=== PATIENT | male | born 1970 | race Caucasian/White ===

== ENCOUNTER 2020-10-16 17:59 | Outpatient (REF) | payer MEDICAID, SELFPAY | END 2020-10-16 18:00 | disposition home or self-care (01) | LOC: HO.LAB 17:59 | PROVIDERS: Visit Provider Internal Medicine | DX: Z20.828 Contact with and (suspected) exposure to other viral communicable diseases (principal) | CPT/HCPCS: C9803; U0003 ==

== ENCOUNTER → 2021-09-04 09:54 | Outpatient (BNVA) | payer OTHER, SELFPAY | PROVIDERS: PCP Internal Medicine Endocrinology, Diabetes & Metabolism; Visit Provider Physician Assistant | DX: S61.412A Laceration without foreign body of left hand, initial encounter (principal); W26.8XXA Contact with other sharp object(s), not elsewhere classified, initial encounter | CPT/HCPCS: 73120; 99204 ==

== ENCOUNTER → 2021-09-06 11:43 | Outpatient (BNVA) | payer OTHER, SELFPAY | PROVIDERS: PCP Internal Medicine Endocrinology, Diabetes & Metabolism; Visit Provider Physician Assistant | DX: S61.412A Laceration without foreign body of left hand, initial encounter (principal); X58.XXXA Exposure to other specified factors, initial encounter | CPT/HCPCS: 99213 ==

== ENCOUNTER → 2021-09-12 12:07 | Outpatient (BNVA) | payer MEDICAID, SELFPAY | PROVIDERS: PCP Internal Medicine Endocrinology, Diabetes & Metabolism; Visit Provider Physician Assistant | DX: S61.412A Laceration without foreign body of left hand, initial encounter (principal); L03.114 Cellulitis of left upper limb; W26.9XXA Contact with unspecified sharp object(s), initial encounter; Z48.02 Encounter for removal of sutures | CPT/HCPCS: 99212; 99213 ==

== ENCOUNTER → 2021-10-17 09:04 | Outpatient (BNVA) | payer MEDICAID, SELFPAY | PROVIDERS: PCP Internal Medicine Endocrinology, Diabetes & Metabolism; Visit Provider Physician Assistant Medical | DX: S33.9XXA Sprain of unspecified parts of lumbar spine and pelvis, initial encounter (principal); X50.3XXA Overexertion from repetitive movements, initial encounter | CPT/HCPCS: 99203 ==

== ENCOUNTER 2022-09-16 07:19 | Emergency (ER) | payer OTHER, SELFPAY ==
--- NOTE | ~2022-09-16 | CT_ITS ---
EXAMINATION: CT ABDOMEN AND PELVIS WITHOUT CONTRAST CLINICAL INFORMATION: Abdominal pain. COMPARISON: None TECHNIQUE: Multidetector volumetric imaging was performed from the superior aspect of the liver through the pubic symphysis. Sagittal and coronal reformatted images were obtained on the technologist's workstation. Lack of intravenous and oral contrast limits visceral evaluation. This CT examination was performed using dose optimization techniques as appropriate, variously including the following: *Automated exposure control *Adjustment of mA and/or kV according to patient size (this includes techniques or standardized protocols for targeted exams where dose is matched to indication/reason for exam; i.e. extremities or head) *Use of iterative reconstruction technique DLP: 575 mGy-cm FINDINGS: LUNG BASES: The visualized lung bases are unremarkable. LIVER, GALLBLADDER, AND BILIARY TREE: Generalized hepatic enlargement with surface nodularity, but no focal abnormality. Mild upper abdominal varices. Gallbladder fold without associated abnormality. PANCREAS: Several punctate calcifications without pancreatic ductal dilatation or peripancreatic abnormality. SPLEEN: 14.4 cm. No overt focal abnormality. ADRENAL GLANDS: Unremarkable. KIDNEYS AND URETERS: The right kidney shows a 0.3 cm calculus in the upper pole (image 68, series 5). No hydronephrosis bilaterally. BLADDER: Unremarkable. GASTROINTESTINAL TRACT: The stomach, small bowel and appendix are unremarkable. The colon and rectum are unremarkable. ABDOMINAL WALL: No significant hernia is appreciated. LYMPH NODES: No lymphadenopathy. VASCULAR: Mild atherosclerosis without significant dilatation. PELVIC VISCERA: Unremarkable. OSSEOUS STRUCTURES: Unremarkable. CT/CT abdomen pelvis wo IV con IMPRESSION: 1. No acute intra-abdominal/pelvic abnormality. 2. Hepatic cirrhosis enlargement with associated sequelae. 3. Nonobstructing right upper pole intrarenal calculus. Fleischner guidelines were followed.
[2022-09-16 07:27] VITALS: BP 146/90; PULSE 68; RESP 18; TEMP 36.2; O2SAT 97; BMI 24.3
[2022-09-16] MEDS: 0.9 % Sodium Chloride 1,000 ML 999 ML IV (08:02)
[2022-09-16 08:09] LABS: MANUAL DIFF FLAG NO
[2022-09-16 08:11] LABS: Basophils Percent Auto 0.5 % (0-2); Eosinophils Absolute Auto 0.1 X10*3/uL (0.0-0.4); Eosinophils Percent Auto 1.4 % (0-4); Hematocrit 48.1 % (42.0-52.0); Hemoglobin 16.4 g/dl (14.0-18.0); Imm Gran Abs Auto 0.02 X10*3/uL (0.00-0.03); Imm Gran Pct Auto 0.3 % (0.0-0.4); Lymphocytes Percent Auto 27.3 % (20-40); Mean Corpuscular HGB Conc 34.1 g/dl (31.0-36.0); Mean Corpuscular Hemoglobin 31.3 pg (27.0-33.0); Mean Corpuscular Volume 91.8 fL (80.0-98.0); Mean Platelet Volume 11.2 fL (9.4-12.4); Monocytes Absolute Auto 0.9 X10*3/uL (0.1-1.2); Monocytes Percent Auto 11.6 % (2-11); Neutrophils Absolute Auto 4.3 x10*3/uL (2.0-8.3); Neutrophils Percent Auto 58.9 % (45-73); Platelet Count 129 X10*3/uL (160-400); Red Blood Count 5.24 X10*6/uL (4.60-5.80); Red Cell Distribution Width 14.5 % (11.0-16.0); White Blood Count 7.3 X10*3/uL (4.8-10.8)
[2022-09-16 08:12] LABS: Appearance Urine Clear; Color Urine Dark Yellow; Glucose Urine UA Negative (Negative); Leukocyte Esterase Urine Negative (Negative); Nitrite Urine Negative (Negative); PH 5.5 (5.0-9.0); Urine Blood Negative (Negative); Urine Ketones Negative (Negative); Urine Protein Negative (Neg-Trace)
--- NOTE | 2022-09-16 08:22 | ED_ITS ---
HPI - Abdominal Pain General Chief Complaint: Abdominal Pain Stated Complaint: Abd pain Time Seen by Provider: 09/16/22 07:46 Source: patient Mode of arrival: ambulatory Limitations: no limitations History of Present Illness HPI narrative: 52-year-old male came in for evaluation of abdominal pain. Abdominal pain started few months ago but for the past 2 days pain is becoming intense and severe, localized to the upper abdomen with no radiation, pain is rated as 7/10 and been constant, associated with slight nausea and nonbloody watery diarrhea but no vomiting, no fever, no chills. No past abdominal surgery. No alcohol or drug abuse patient is recovering from previous drug abuse history. Related Data Allergies Allergy/AdvReac Type Severity Reaction Status Date / Time Penicillins [PENICILLINS] Allergy Unknown ANAPHYLAXIS Verified 09/16/22 07:26 Review of Systems Review of Systems All other systems are reviewed and are negative Constitutional: Reports as per HPI and Reports no additional constitutional complaints Eyes: Reports as per HPI and Reports no additional eye complaints Reports system reviewed and no additional complaints, except as documented Cardiovascular: Reports as per HPI and Reports no additional cardiovascular complaints Respiratory: Reports as per HPI and Reports no additional respiratory complaints Gastrointestinal: Reports as per HPI and Reports no additional gastrointestinal complaints Genitourinary: Reports no additional female genitourinary complaints Musculoskeletal: Reports no additional musculoskeletal complaints Skin/Breast: Reports system reviewed and no additional complaints, except as docu Psychiatric: Reports no additional psychiatric complaints Endocrine: Reports no additional endocrine complaints Hematologic/Lymphatic: Reports no additional hematologic/lymphatic complaints Allergic/Immunologic: Reports no additional allergic/immunologic complaints Reports system reviewed and no additional complaints, except as documented and Reports Abnormal speech present [facility] Social History Social History Advance Directives: No Advance Directives Information Provided: No Physical Exam ED Vital Signs: Vital Signs - 24 hr 09/16/22 07:27 09/16/22 09:18 Temperature 97.1 F 97.5 F Pulse Rate 68 50 Respiratory Rate 18 14 Blood Pressure 146/90 H 126/88 Pulse Oximetry 97 97 Oxygen Delivery Method Room Air Room Air BMI result Body Mass Index 24.3 Vital signs have been reviewed as appeared to be correct. Blood pressure normal. Heart rate normal. Respiration rate normal. Temperature normal. Oxygen saturation normal. Appearance: Alert. Oriented X3. No acute distress. Head: Normal external exam. Normocephalic. Atraumatic. No Chung signs noted. No raccoon eyes noted Eyes: PERRLA. EOMI. Conjunctiva and sclera normal. Eyelids normal. ENT: TM's Normal. Pharynx normal. Uvula midline. Moist mucous membranes. No trismus noted. No drooling noted. No muffled voice noted. Neck: Normal inspection. Neck supple. FROM. No adenopathy. Thyroid Normal. No meningeal signs. No neck mass noted. CVS: Normal heart rate and rhythm. Heart sound normal. No murmurs noted. Pulses normal throughout. Respiratory: No respiratory distress. Painless inspiration. Breath sounds normal. No wheezes/rales/rhonchi noted. Chest nontender. No accessory muscle usage noted or decreased air movement noted. Abdomen: Soft, tenderness over upper abdominal area, no rebound tenderness, no guarding. Bowel sounds normal in all 4 quadrants. No distention noted. No organomegaly noted. No visible injury noted. Back: No CVA tenderness. Full range of motion noted. Skin: Skin warm and dry. Normal skin color. Normal skin turgor. No rashes/lesions/lacerations noted. Extremities: No lower extremity edema. Extremities exhibit normal range of motion. Extremities nontender. Neuro: Oriented X 3. Cranial nerve exam: II-XII are grossly intact No motor deficit. No sensory deficit. Reflexes normal. Course Course Course Narrative: 52-year-old male presented with chronic abdominal pain that has been worsening lately, patient is non alcohol user, no current drug history. No acute finding found on the CT except for a large cirrhosis of the liver patient was instructed to avoid Tylenol use or alcohol abuse and to start on low-fat diet and patient was instructed to follow-up with GI Dr. Lee information was provided. Medications Administered Discontinued Medications Generic Name Dose Route Start Last Admin Trade Name Freq PRN Reason Stop Dose Admin Sodium Chloride 1,000 mls @ 999 mls/hr 09/16/22 07:50 09/16/22 08:02 Ns IV 09/16/22 08:50 999 mls/hr .Q1H1M ONE Administration MDM - Abdominal Pain Medical Records Attestation: I reviewed the patient's medical records. Lab Data Attestation: I reviewed the patient's lab results. Result diagrams: 09/16/22 07:59 09/16/22 07:59 Labs: Lab Results 09/16/22 09/16/22 09/16/22 Range/Units 07:55 07:59 07:59 WBC 7.3 (4.8-10.8) X10*3/uL RBC 5.24 (4.60-5.80) X10*6/uL Hgb 16.4 (14.0-18.0) g/dl Hct 48.1 (42.0-52.0) % MCV 91.8 (80.0-98.0) fL MCH 31.3 (27.0-33.0) pg MCHC 34.1 (31.0-36.0) g/dl RDW 14.5 (11.0-16.0) % Plt Count 129 L (160-400) X10*3/uL MPV 11.2 (9.4-12.4) fL Immature Gran % (Auto) 0.3 (0.0-0.4) % Neut % (Auto) 58.9 (45-73) % Lymph % (Auto) 27.3 (20-40) % [place] % (Auto) 11.6 H (2-11) % Eos % (Auto) 1.4 (0-4) % Baso % (Auto) 0.5 (0-2) % Lymph # (Auto) 2.0 (1.2-4.9) X10*3/uL [place] # (Auto) 0.9 (0.1-1.2) X10*3/uL Eos # (Auto) 0.1 (0.0-0.4) X10*3/uL Baso # (Auto) 0.0 (0.0-0.2) X10*3/uL Abs Immat Gran (auto) 0.02 (0.00-0.03) X10*3/uL Absolute Neuts (auto) 4.3 (2.0-8.3) x10*3/uL Absolute Nucleated RBC 0.000 (0.0-0.012) X10*3/uL Nucleated RBC % (auto) 0.0 (0.0-0.2) /100WBC Sodium 139 (135-145) mmol/L Potassium 4.4 (3.3-5.1) mmol/L Chloride 101 (96-108) mmol/L Carbon Dioxide 32 H (22-29) mmol/L Anion Gap 10 L (12-20) BUN 14 (9-16) mg/dL Creatinine 0.74 (0.5-1.4) mg/dL Estim Creat Clear Calc 135.7 Estimated GFR > 60 Random Glucose 105 (60-115) mg/dL Calcium 9.3 (8.4-10.2) mg/dL Total Bilirubin 1.2 H (0.0-1.0) mg/dL Direct Bilirubin 0.5 (0.0-0.5) mg/dL AST 25 (5-37) U/L ALT 26 (0-40) U/L Alkaline Phosphatase 83 (39-117) U/L Total Protein 7.0 (6.5-8.0) g/dL Albumin 3.6 (3.5-5.0) g/dL Lipase 12 (8-78) U/L Urine Color Dark Yellow Urine Appearance Clear Urine pH 5.5 (5.0-9.0) Ur Specific [place] 1.020 (1.005-1.025) Urine Protein Negative (Neg-Trace) mg/dL Urine Glucose (UA) Negative (Negative) mg/dL Urine Ketones Negative (Negative) mg/dL Urine Blood Negative (Negative) Urine Nitrite Negative (Negative) Ur Leukocyte Esterase Negative (Negative) Imaging Data CT scan - abdomen: Attestation: I personally reviewed and interpreted this imaging study as follows: Radiologist's impression: 1. No acute intra-abdominal/pelvic abnormality. 2. Hepatic cirrhosis enlargement with associated sequelae. 3. Nonobstructing right upper pole intrarenal calculus. Discharge Plan Discharge Clinical Impression: Abdominal pain, Cirrhosis of liver Patient Disposition: Home, Self-Care Instructions: Cirrhosis (ED) Additional Instructions: Do not use Tylenol or alcohol start on low-fat diet and follow up with GI. Referrals: Valeria Lee MD [Physician] -
[2022-09-16 08:28] LABS: Alanine Aminotransferase 26 U/L (0-40); Albumin Level 3.6 g/dL (3.5-5.0); Alkaline Phosphatase 83 U/L (39-117); Anion Gap 10 (12-20); Aspartate Amino Transferase 25 U/L (5-37); Bilirubin Direct 0.5 mg/dL (0.0-0.5); Bilirubin Total 1.2 mg/dL (0.0-1.0); Blood Urea Nitrogen 14 mg/dL (9-16); Calcium 9.3 mg/dL (8.4-10.2); Carbon Dioxide 32 mmol/L (22-29); Chloride 101 mmol/L (96-108); Creatinine Clr Calc Pharmacy 135.7; Estimated Glomerular Filt Rate > 60; Glucose Random 105 mg/dL (60-115); Lipase 12 U/L (8-78); Potassium 4.4 mmol/L (3.3-5.1); Sodium 139 mmol/L (135-145)
[2022-09-16 09:18] VITALS: BP 126/88; PULSE 50; RESP 14; TEMP 36.4; O2SAT 97
== END 2022-09-16 11:11 | disposition home or self-care (01) ==
PROVIDERS: Emergency Provider Emergency Medicine
DX: K74.60 Unspecified cirrhosis of liver (principal); R10.9 Unspecified abdominal pain; Z79.899 Other long term (current) drug therapy
CPT/HCPCS: 36415; 74176; 80048; 80076; 81003; 83690; 85025; 99283; 99284

== ENCOUNTER 2022-09-22 10:19 | Outpatient (REF) | payer OTHER, SELFPAY ==
[2022-09-22 11:00] LABS: Prothrombin Time 11.9 SEC (10.0-13.1)
[2022-09-22 11:14] LABS: Estimated Average Glucose 85 mg/dL; Hemoglobin A1c % 4.6 %
[2022-09-22 12:08] LABS: Cholesterol 178 mg/dL; HDL Cholesterol 51 mg/dL; Iron 108 mcg/dL (45-160); LDL Cholesterol Calculated 108 mg/dl; Percent Iron Saturation 36 % (15-50); Total Iron Binding Capacity 298 mcg/dL (228-428); Triglycerides 98 mg/dL; Unsaturated Iron Binding 190 ug/dL
[2022-09-22 12:31] LABS: Ferritin 284 ng/mL (20-250); Vitamin D 25-OH Total 22.1 ng/mL (>30); ~HepC Num1 10.74 S/CO (0.00-0.79); ~Hepatitis C Antibody Reactive (Nonreactive)
[2022-09-22 12:32] LABS: Hepatitis A Antibody IgG REACTIVE (Nonreactive); ~Hepatitis A Antibody IgG 6.99 S/CO (0.00-0.99)
[2022-09-22 12:33] LABS: HBS Num1 21.28 mIU/mL (0-7.99); HBc Num1 10.08 S/CO (0.00-0.79); HBsAGNum1 0.29 S/CO (0.00-0.99); HIV AB/AG Nonreactive (Nonreactive); HIV Num 1 0.07 S/CO (0.00-0.99); Hepatitis B Surface Antigen Negative (Negative); ~Hepatitis B Surface Antibody REACTIVE (Nonreactive)
[2022-09-22 14:53] LABS: HBc Num2 9.41 S/CO; HBc Num3 9.71 S/CO; Hepatitis B Core Antibody Reactive (Nonreactive)
[2022-09-24 06:57] LABS: Hepatitis B Core Antibody IgM NON-REACTIVE (NON-REACTIVE)
[2022-09-26 14:49] LABS: HCV Log PCR 5.59 Log IU/mL (NOT DETECTED); HepC Viral Load 387000 IU/mL (NOT DETECTED)
== END 2022-09-22 10:20 | disposition home or self-care (01) ==
LOC: HO.LAB 10:19
PROVIDERS: Visit Provider Internal Medicine
DX: K74.60 Unspecified cirrhosis of liver (principal); B19.20 Unspecified viral hepatitis C without hepatic coma; L98.9 Disorder of the skin and subcutaneous tissue, unspecified; F10.20 Alcohol dependence, uncomplicated; F19.20 Other psychoactive substance dependence, uncomplicated; Z80.1 Family history of malignant neoplasm of trachea, bronchus and lung; Z12.2 Encounter for screening for malignant neoplasm of respiratory organs
CPT/HCPCS: 80061; 82306; 82728; 83036; 83540; 85610; 86704; 86705; 86706; 86708; 86803; 87340; 87389; 87522; 99202

== ENCOUNTER 2022-10-28 09:31 | Outpatient (REF) | payer OTHER, SELFPAY ==
[2022-10-29 17:43] LABS: HCV RNA PCR Qn 199000 IU/mL (NOT DETECTED)
[2022-11-01 18:08] LABS: Hepatitis Delta Antibody NEGATIVE
[2022-11-02 10:18] LABS: HCV Genotype LiPA 3
== END 2022-10-28 09:32 | disposition home or self-care (01) ==
LOC: HO.LAB 09:31
PROVIDERS: Visit Provider Internal Medicine
DX: R76.8 Other specified abnormal immunological findings in serum (principal); K74.60 Unspecified cirrhosis of liver; L98.9 Disorder of the skin and subcutaneous tissue, unspecified; B19.20 Unspecified viral hepatitis C without hepatic coma; F19.90 Other psychoactive substance use, unspecified, uncomplicated
CPT/HCPCS: 36415; 86692; 87517; 87902; 99212

== ENCOUNTER 2022-11-05 08:52 | Outpatient (REF) | payer OTHER, SELFPAY ==
--- NOTE | ~2022-11-05 | US_ITS ---
EXAMINATION: US duplex arterial venous comp CLINICAL INFORMATION: Viral hepatitis C COMPARISON: None TECHNIQUE: Color and spectral Doppler evaluation of the hepatic vasculature. FINDINGS: SPLENIC VEIN: Patent with normal waveforms. HEPATIC VEINS: Patent with normal waveforms. PORTAL VEINS: Patent with normal waveforms and hepatopetal flow. HEPATIC ARTERIES: Normal upstroke and diastolic flow. INFERIOR VENA CAVA: Patent with normal waveforms. ABDOMINAL AORTA: The visualized proximal segment is normal in caliber. US/US duplex arterial venous comp IMPRESSION: Unremarkable examination.
--- NOTE | ~2022-11-05 | US_ITS ---
EXAMINATION: US COMPLETE ABDOMEN WITH LIVER ELASTOGRAPHY CLINICAL INFORMATION: Hepatitis COMPARISON: None. TECHNIQUE: Real-time imaging of the abdominal viscera. Noninvasive ultrasound liver fibrosis assessment is performed using [employer] ElastPQ point quantification shear wave elastography (2D-SWE) with a C5-2 MHz transducer. Multiple elastography samples are obtained. FINDINGS: PANCREAS: Normal. The visualized pancreatic head and body are normal in appearance. The remainder of the pancreas is obscured from visualization by the overlying bowel gas. ABDOMINAL AORTA: The proximal, middle, and distal aortic segments are normal in caliber. INFERIOR VENA CAVA: Visualized portions are normal. LIVER: Normal. The liver demonstrates normal size, contour and echogenicity. No focal lesion or intrahepatic biliary duct dilatation. The right lobe measures 22 cm in length. The left lobe measures 10.8 cm in length. Portal flow is normal Shear wave liver elastography median stiffness is 2.2 m/s (reference: normal median stiffness is 1.3 m/s or less). IQR/median stiffness to assess sampling precision is 0.19 (reference: good quality data set is IQR/median stiffness of 0.15 or less). GALLBLADDER: Normal. The gallbladder is physiologically distended without evidence of stones, sludge, polyps, wall thickening or pericholecystic fluid. COMMON BILE DUCT: Normal in caliber measuring 0.9 cm in diameter. RIGHT KIDNEY: Normal. No hydronephrosis. No renal calculi or focal parenchymal lesions. The kidney measures 12.4 cm in maximum dimension. LEFT KIDNEY: Normal. No hydronephrosis. No renal calculi or focal parenchymal lesions. The kidney measures 12.7 cm in maximum dimension. SPLEEN: Enlarged. The spleen measures 15.8 cm in maximum dimension. FREE FLUID: None. US/US abdomen comp w elastography IMPRESSION: 1. Limited sampling 2. Liver elastography: Measuremensts are consistent with compensated advanced chronic liver disease. Splenomegaly. REFERENCE: Society of Radiologists in Ultrasound Liver Stiffness Thresholds (2020): LIVER STIFFNESS THRESHOLDS: *Liver Stiffness equal or less than 1.3 m/s: High probability of being normal. *Liver Stiffness less than 1.7 m/s: In the absence of other known clinical signs, rules out compensated advanced chronic liver disease. *Liver Stiffness 1.7-2.1 m/s: Suggestive of compensated advanced chronic liver disease but need further test for confirmation. *Liver Stiffness over 2.1 m/s: Rules in compensated advanced chronic liver disease. *Liver Stiffness over 2.4 m/s: Suggestive of clinically significant portal hypertension. QUALITY OF DATA SET: *IQR/Median value equal or less than 0.15 implies a quality data set. *IQR/Median value over 0.15 implies a poor quality data set. SIGNIFICANT CHANGE FROM PRIOR EXAM: Significant change if liver stiffness measurement is 10% or greater from prior exam. OTHER CONSIDERATIONS: The stage of liver fibrosis may be overestimated in the setting of acute hepatitis, liver inflammation, elevated liver function tests, hepatic vascular congestion, obstructive cholestasis, non-fasting state, and infiltrative diseases such as amyloidosis and lymphoma. In some patients with NAFLD, the liver stiffness thresholds for compensated advanced chronic liver disease may be lower. In causes other than viral hepatitis and NAFLD, liver stiffness thresholds are not well established.
== END 2022-11-05 08:53 | disposition home or self-care (01) ==
LOC: HO.US 08:52
PROVIDERS: Visit Provider Internal Medicine
DX: B19.20 Unspecified viral hepatitis C without hepatic coma (principal)
CPT/HCPCS: 76705; 76981; 93975

== ENCOUNTER → 2022-11-25 08:45 | Outpatient (BNVA) | payer OTHER, SELFPAY | PROVIDERS: Visit Provider Internal Medicine | DX: Z12.2 Encounter for screening for malignant neoplasm of respiratory organs (principal); Z12.11 Encounter for screening for malignant neoplasm of colon; F10.90 Alcohol use, unspecified, uncomplicated; F19.90 Other psychoactive substance use, unspecified, uncomplicated; B19.20 Unspecified viral hepatitis C without hepatic coma; R76.8 Other specified abnormal immunological findings in serum; K74.60 Unspecified cirrhosis of liver | CPT/HCPCS: 99212 ==

== ENCOUNTER → 2022-12-01 11:04 | Day surgery (SDC) | payer OTHER, SELFPAY ==
--- NOTE | 2022-12-01 11:20 | HO.ANESPROP2 ---
HPI - Anesthesia Eval Consult details Narrative: egd,colonoscopy PMFSH Active Problems Active Problems: All Active Problems (Updated 10/28/22 @ 10:29 by Brittany Stiles MD) Colon cancer screening (Acute) Hepatitis B core antibody positive (Acute) Hepatitis C (Acute) Alcohol use disorder (Acute) IV drug user (Acute) Skin lesion (Acute) Screening for lung cancer (Acute) Past Medical History Medical History Alcohol use disorder Hepatitis C IV drug user Smoking Family History Family History Maternal Uncle Cancer Paternal Uncle Cancer Maternal Uncle Cancer Maternal Uncle Cancer Father Arthritis Congenital polycystic lung Mother Diabetes Family history of problems with anesthesia: No Surgical History History of Problems with Anesthesia: No Social History Social History Advance Directives: No Advance Directives Information Provided: Yes Meds Allergies Allergy/AdvReac Type Severity Reaction Status Date / Time Penicillins [PENICILLINS] Allergy Unknown ANAPHYLAXIS Verified 11/25/22 08:56 Active Medications: Current Medications Lactated Ringer's (Lr) 1,000 mls @ 50 mls/hr IVCONT .Q[facility] Home Medications Medication Instructions Recorded Confirmed Last Taken Type fluoxetine 20 mg capsule 20 mg PO DAILY 09/22/22 Unknown History methadone 5 mg/5 mL oral solution 120 mg PO DAILY 09/22/22 Unknown History Exam Exam Date and Time: December 01, 2022 1120 Airway Mallampati Class: II TM Dist: >3cm Neck ROM: Full Heart: rrr Lungs: cta Assessment and Plan Final Anesthetic Review Family History of Problems with Anesthesia: No History of Problems with Anesthesia: No NPO: Yes ASA Class: III Final Preanesthetic Review: No Changes in Pt Med Stat, Meds/Allgs Chart Reviewed, Consent Obtained/Reviewed and Anes Risks/Benef Reviewed Patient Risk: Intermediate Procedure Risk: Intermediate Anesthetic Plan Anesthetic Plan: MAC: Disposition: Standard PACU
[2022-12-01 11:25] VITALS: BMI 24.3
[2022-12-01 11:46] LABS: Amphetamine Screen Urine Not Detected (Not Detect); Barbiturates, Urine Not Detected (Not Detect); Benzodiazepines Screen Urine Not Detected (Not Detect); Cannabinoid Screen Urine Not Detected (Not Detect); Cocaine Screen Urine POSITIVE (Not Detect); Fentanyl, urine POSITIVE (Not Detect); Opiate Screen Urine POSITIVE (Not Detect); Phencyclidine Screen Urine Not Detected (Not Detect)
--- NOTE | 2022-12-01 11:49 | MHC.SHP ---
Pre-Procedural Eval Section A Date of Service: 12/01/22 The History & Physical has been completed within 30 days and I have reviewed it.: Yes Section B Chief Complaint: variceal screening, HCV, CRC screening Allergies: Allergies Allergy/AdvReac Type Severity Reaction Status Date / Time Penicillins [PENICILLINS] Allergy Unknown ANAPHYLAXIS Verified 11/25/22 08:56 Plan Diagnosis/Plan: Unchanged I have reviewed the history and physical and performed a pertinent physical examination on my patient. No changes have occurred unless specified. Time Spent With Patient Time: Total time managing care of this patient today ____ minutes.
[2022-12-01 11:50] VITALS: BP 136/74; PULSE 47; RESP 16; TEMP 36.3; O2SAT 96
[2022-12-01] MEDS: Lactated Ringers 1,000 ML 50 ML IVCONT (11:54)
== END ==
PROVIDERS: Anesthesiology; Visit Provider Internal Medicine
DX: Z12.11 Encounter for screening for malignant neoplasm of colon (principal); Z53.20 Procedure and treatment not carried out because of patient's decision for unspecified reasons; F19.10 Other psychoactive substance abuse, uncomplicated; F10.90 Alcohol use, unspecified, uncomplicated; F17.210 Nicotine dependence, cigarettes, uncomplicated
CPT/HCPCS: 80307

== ENCOUNTER → 2023-05-08 10:30 | Day surgery (SDC) | payer OTHER, SELFPAY ==
[2023-05-07 08:34] VITALS: BMI 25.0
--- NOTE | 2023-05-08 10:40 | PC.NURSE ---
Patient cancelled per Dr. Pringle and Dr. Stiles due to positive utox. Patient made aware by this nurse and states he will reschedule again.
[2023-05-08 10:47] VITALS: BP 138/76; PULSE 63; RESP 16; TEMP 37; O2SAT 98
[2023-05-08 10:59] VITALS: BMI 27.6
[2023-05-08 11:00] LABS: Amphetamine Screen Urine Not Detected (Not Detect); Barbiturates, Urine Not Detected (Not Detect); Benzodiazepines Screen Urine Not Detected (Not Detect); Cannabinoid Screen Urine Not Detected (Not Detect); Cocaine Screen Urine POSITIVE (Not Detect); Fentanyl, urine POSITIVE (Not Detect); Opiate Screen Urine POSITIVE (Not Detect); Phencyclidine Screen Urine Not Detected (Not Detect)
== END ==
PROVIDERS: Anesthesiology; Visit Provider Internal Medicine
DX: K74.60 Unspecified cirrhosis of liver (principal); Z53.8 Procedure and treatment not carried out for other reasons; R82.5 Elevated urine levels of drugs, medicaments and biological substances; B19.20 Unspecified viral hepatitis C without hepatic coma; F19.90 Other psychoactive substance use, unspecified, uncomplicated
CPT/HCPCS: 80307

== ENCOUNTER 2023-05-23 17:57 | Emergency (ER) | payer OTHER, SELFPAY ==
--- NOTE | ~2023-05-23 | XR_ITS ---
EXAMINATION: XR LUMBOSACRAL SPINE CLINICAL INFORMATION: Right-sided pain COMPARISON: None available. TECHNIQUE: Three views of the lumbosacral spine. FINDINGS: There is no listhesis or compression injury. The vertebral heights are fairly well-maintained. The disc heights are fairly well-maintained. There may well be some early degenerative changes in the posterior elements in the lower lumbar region. Some loss of height at D12-L1 and T11-T12 with some mild spurring Mild scoliosis convex right apex at L3 The SI joints are grossly patent. XR/XR lumbar spine 2-3V IMPRESSION: Some mild observations. No listhesis or compression injury.
[2023-05-23 18:00] VITALS: BP 127/82; PULSE 122; RESP 18; TEMP 36.4; O2SAT 96; BMI 27.6
--- NOTE | 2023-05-23 18:01 | ED_ITS ---
HPI - General Adult General Chief complaint: Back Pain/Injury Stated complaint: Lower back pain/work injury Time Seen by Provider: 05/23/23 19:49 Source: patient Mode of arrival: ambulatory Limitations: no limitations History of Present Illness HPI narrative: 53-year-old male who presents emergency department for evaluation of lower back pain. Patient states that he was painting baseboards on (2 days pr ior), he twisted and injured his back. Describes the pain as a constant, pressure-like pain in his lower back right greater than left. He states that he did have some pain that radiated to his right hip this resolved. He has been taking ibuprofen with minimal relief his pain. He states he is having difficulty standing straight secondary to his pain. He denied any numbness or weakness of his extremities. He denied being ill in any other way-he denied fever, chills, myalgias, arthralgias, fatigue Related Data Home Medications Medication Instructions Recorded Confirmed methadone 5 mg/5 mL oral solution 120 mg PO DAILY 09/22/22 05/08/23 Previous Rx's Medication Instructions Recorded cyclobenzaprine 10 mg tablet 10 mg PO TID PRN muscle pain or 05/23/23 spasm #20 tabs Allergies Allergy/AdvReac Type Severity Reaction Status Date / Time Penicillins [PENICILLINS] Allergy Severe ANAPHYLAXIS Verified 05/23/23 18:06 Review of Systems Review of Systems: Yes all other systems are reviewed and are negative [facility] Past Medical History [facility] Narrative: Social history: He denies alcohol and drug use. He denies tobacco use. Medical History Alcohol use disorder Hepatitis C IV drug user Nicotine dependence, cigarettes, uncomplicated Smoking Surgical History History of facial surgery Family History Family History Maternal Uncle Cancer Paternal Uncle Cancer Maternal Uncle Cancer Maternal Uncle Cancer Father Arthritis Congenital polycystic lung Mother Diabetes Social History Social History Patient Tobacco Use Status: Current everyday Tobacco user Tobacco use type: Cigarette Cigarette Packs Per Day: 0.5 Cigarettes Per Day: 10.0 Years Smoked: 30 Advance Directives: No Advance Directives Information Provided: No Physical Exam ED Vital Signs: Vital Signs - 24 hr 05/23/23 18:00 Temperature 97.6 F Pulse Rate 122 H Respiratory Rate 18 Blood Pressure 127/82 Pulse Oximetry 96 Oxygen Delivery Method Room Air BMI result Body Mass Index 27.6 Vital signs were normal General: Awake, alert, male patient, very pleasant cooperative, no distress Back exam: Patient has no point tenderness palpation over his vertebrae. He has negative straight leg raises bilaterally pain . He has normal sensation and strength in his lower extremities. Patient does have tenderness palpation of the paraspinal muscles lumbar sacral area bilaterally right greater than left. He does have spasm of his right paraspinal muscles. Course Course Course Narrative: This is a rapid medical exam: Additional HPI, ROS, PE not included below will be deferred to primary provider. Patient is a 53-year-old male with history of hepatitis C, alcohol use disorder, IV drug use presenting to the emergency department with right lower back pain since Thursday. 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 States pain was worst on and Thursday. Pain relieved by floating in the swimming pool. Has also used ibuprofen with some relief. Reports radiation of pain to hips, denies radiation of pain down legs. Denies saddle anesthesia or bowel or bladder incontinence. Reports neuropathy at baseline, denies any new numbness or tingling to legs. HR 120's in triage. Denies any chest pain or dyspnea, states he ran inside to the ED due to rainfall. Plan: EKG, lumbar x-ray Medical Decision Making Medical Decision Making MDM Narrative: 53-year-old male who presents emergency department for evaluation of bilateral lower back pain right greater than left which started on (these 2 days prior to evaluation) while he was painting base boards. Patient has been taking ibuprofen with some relief his pain. Patient's examination did reveal tenderness palpation of the paraspinal muscles in lumbar sacral area right greater than left with spasm of his right paraspinal muscles. Patient's presentation is consistent with musculoskeletal injury and I did discuss this with him. Patient was advised to take Tylenol ibuprofen for pain. He is also prescribe cyclobenzaprine. He was given a work note. Patient was discharged home Differential Diagnosis Differential diagnosis includes was not limited to musculoskeletal strain, musculoskeletal muscle spasm, disc disease Prescription Management I considered prescription management with: Pain Medication (Cyclobenzaprine) Discharge Plan Discharge Clinical Impression: Low back sprain, Muscle spasm Patient Disposition: Home, Self-Care Additional Instructions: Back Pain Discharge Instructions: Take Motrin (ibuprofen) 200 mg pills, 3 pills every 6 hours as needed for pain. Take Tylenol (acetaminophen) 500 mg pills, 2 pills every 6 hours as needed for pain. Take Flexeril (cyclobenzaprine) 10 mg pills, 1 pill every 8 hours as needed for pain or muscle spasm. This is a prescription medication. This medication will make you sleepy, therefore do not drive or work while taking this medication. Apply ice for 15 minutes to the area that hurts on your back, then apply a heating a pad on low for 15 minutes. Do this 4-6 times a day to help reduce the pain in your back. Continue with normal activities as tolerated since staying in bed and not moving around will make your pain worse. You can also try over the counter lidocaine patches as directed on the box to help with the pain. Please return to the Emergency Department or see your doctor immediately if your symptoms get worse or if you develop any new symptoms that are concerning you. Follow up with your doctor in 2 day. Please read the other printed discharge instructions on back pain. Prescriptions: New cyclobenzaprine 10 mg tablet 10 mg PO TID PRN (Reason: muscle pain or spasm) Qty: 20 0RF No Action methadone 5 mg/5 mL solution 120 mg PO DAILY Stand Alone Forms: Work/School Release Interventions: ED Discharge Assessment Last Done: 05/23/23 20:11 Discharge Date/Time: 05/23/23 20:11
--- NOTE | 2023-05-23 18:06 | ECG_ITS ---
Test Reason : Tachycardia Blood Pressure : / mmHG Vent. Rate : 117 BPM Atrial Rate : 117 BPM P-R Int : 164 ms QRS Dur : 088 ms QT Int : 334 ms P-R-T Axes : 049 -02 063 degrees QTc Int : 465 ms Sinus tachycardia Cannot rule out Anterior infarct , age undetermined Abnormal ECG No previous ECGs available Referred By: Yumiko Geronimo Electronically Signed By:RENETTA ROBBINS MD
== END 2023-05-23 20:11 | disposition home or self-care (01) ==
PROVIDERS: Emergency Provider Emergency Medicine Emergency Medical Services
DX: S39.012A Strain of muscle, fascia and tendon of lower back, initial encounter (principal); X50.1XXA Overexertion from prolonged static or awkward postures, initial encounter; M62.830 Muscle spasm of back; F17.210 Nicotine dependence, cigarettes, uncomplicated; Y93.E9 Activity, other interior property and clothing maintenance; Y92.099 Unspecified place in other non-institutional residence as the place of occurrence of the external cause; Y99.0 Civilian activity done for income or pay
CPT/HCPCS: 72100; 93005; 99283

== ENCOUNTER → 2023-05-23 18:06 | Outpatient (BNV) | payer OTHER, SELFPAY | PROVIDERS: Emergency Provider Emergency Medicine Emergency Medical Services; Visit Provider Internal Medicine Cardiovascular Disease | DX: R00.0 Tachycardia, unspecified (principal) | CPT/HCPCS: 93010 ==

== ENCOUNTER 2024-08-11 09:52 | Emergency (ER) | payer SELFPAY ==
--- NOTE | ~2024-08-11 | XR_ITS ---
EXAMINATION: XR FOOT, RIGHT CLINICAL INFORMATION: Pain. COMPARISON: None available. TECHNIQUE: AP, lateral, and oblique views of the right foot. FINDINGS: No displaced fracture. No dislocation. Moderate joint space narrowing with marginal osteophytes at the first metatarsophalangeal joint. Dorsal calcaneal spur. No concerning lytic or blastic osseous lesion. XR/XR foot RT 2V IMPRESSION: 1. No displaced fracture or dislocation. 2. Moderate first metatarsophalangeal joint osteoarthritis. 3. Dorsal calcaneal spur. Electronically signed by: Konstantin Lyon MD 08/11/2024 12:07 PM EDT
[2024-08-11 10:12] VITALS: BP 145/99; PULSE 68; RESP 16; TEMP 36.8; O2SAT 98; BMI 27.0
[2024-08-11 10:29] LABS: MANUAL DIFF FLAG NO
[2024-08-11 10:31] LABS: Basophils Absolute Auto 0.1 X10*3/uL (0.0-0.2); Basophils Percent Auto 0.5 % (0-2); Eosinophils Absolute Auto 0.1 X10*3/uL (0.0-0.4); Eosinophils Percent Auto 1.3 % (0-4); Hematocrit 47.9 % (42.0-52.0); Hemoglobin 16.9 g/dl (14.0-18.0); Imm Gran Abs Auto 0.04 X10*3/uL (0.00-0.03); Imm Gran Pct Auto 0.4 % (0.0-0.4); Lymphocytes Absolute Auto 2.3 X10*3/uL (1.2-4.9); Lymphocytes Percent Auto 24.5 % (20-40); Mean Corpuscular HGB Conc 35.3 g/dl (31.0-36.0); Mean Corpuscular Hemoglobin 32.1 pg (27.0-33.0); Mean Corpuscular Volume 91.1 fL (80.0-98.0); Mean Platelet Volume 11.5 fL (9.4-12.4); Monocytes Absolute Auto 0.9 X10*3/uL (0.1-1.2); Monocytes Percent Auto 9.2 % (2-11); Neutrophils Absolute Auto 5.9 x10*3/uL (2.0-8.3); Neutrophils Percent Auto 64.1 % (45-73); Platelet Count 143 X10*3/uL (160-400); Red Blood Count 5.26 X10*6/uL (4.60-5.80); Red Cell Distribution Width 13.6 % (11.0-16.0); White Blood Count 9.2 X10*3/uL (4.8-10.8)
[2024-08-11 11:13] LABS: Alanine Aminotransferase 15 U/L (0-40); Albumin Level 4.2 g/dL (3.5-5.0); Alkaline Phosphatase 88 U/L (39-117); Anion Gap 11 (12-20); Aspartate Amino Transferase 15 U/L (5-37); Bilirubin Total 0.4 mg/dL (0.0-1.0); Blood Urea Nitrogen 14 mg/dL (9-16); Calcium 9.7 mg/dL (8.4-10.2); Carbon Dioxide 28 mmol/L (22-29); Chloride 104 mmol/L (96-108); Creatinine Clr Calc Pharmacy 105.5; Estimated Glomerular Filt Rate > 60; Glucose Random 90 mg/dL (60-115); Potassium 4.4 mmol/L (3.3-5.1); Sodium 139 mmol/L (135-145); Total Protein 7.7 g/dL (6.5-8.0)
--- NOTE | 2024-08-11 11:29 | ED.SKABFB ---
HPI - Skin/Abscess/Foreign Bdy General Chief complaint: Skin/Abscess/Foreign Body Stated complaint: r foot pain Time Seen by Provider: 08/11/24 11:28 Source: patient, RN notes reviewed and old records reviewed Mode of arrival: ambulatory Limitations: no limitations History of Present Illness ED Provider: DEMETRIO MCCLENDON PA-C HPI narrative: 54 year old male with pmhx significant for IVDU (sober x months), hepatitis c, etoh use disorder presents to the ED today for evaluation of redness/swelling to right foot x24 hours. reports first noticing an area of redness to the top of his foot yesterday. the area has since been progressing proximally and distally up the foot/ ankle. states the area is warm to the touch. denies drainage. endorses chronic callus to his right great toe x months, is unsure if his is related. denies hx of DM. admits to hx of IVDU however he has not injected illicit substances in months. has never injected into the affected area. denies trauma/ injury. denies fever/ chills. denies tick or insect bites. Related Data Home Medications ?Medication ?Instructions ?Recorded ?Confirmed methadone 5 mg/5 mL oral solution 120 mg PO DAILY 09/22/22 05/08/23 Previous Rx's ?Medication ?Instructions ?Recorded cyclobenzaprine 10 mg tablet 10 mg PO TID PRN muscle pain or 05/23/23 spasm #20 tabs clindamycin HCl 300 mg capsule 300 mg PO TID 7 days #21 caps 08/11/24 doxycycline hyclate 100 mg capsule 100 mg PO BID 7 days #14 caps 08/11/24 Allergies Allergy/AdvReac Type Severity Reaction Status Date / Time Penicillins [PENICILLINS] Allergy Severe ANAPHYLAXIS Verified 08/11/24 10:17 Review of Systems Review of Systems: Constitutional: No fever, chills, fatigue, night sweats, weight changes ENT/Mouth: No ear pain, hearing loss, nasal congestion, sinus pain, rhinorrhea, sore throat Eyes: No eye pain, swelling, redness, vision changes, discharge Cardio: No chest pain, palpitations, JAVIER, orthopnea, peripheral edema Pulm: No SOB, cough, sputum, wheezing, dyspnea, hemoptysis GI: No nausea, vomiting, hematemesis, abdominal pain, diarrhea, constipation, hematochezia, melena : No irregular bleeding, dysuria, frequency, urgency, hesitancy, hematuria, flank pain, urinary flow changes, urinary incontinence or retention MSK: No back pain, neck pain, joint pain, myalgias, +right foot pain/ swelling Skin: No lesions, rashes Neuro: No weakness, numbness, paresthesias, LOC, dizziness, headache Psych: No anxiety/panic, depression, SI/HI, AH/VH All other systems reviewed and are negative. COUNT INCLUDES THE [facility] Past Medical History Attestation statement: The following information was validated with the patient. Source: old records reviewed and nursing notes reviewed Medical History Nicotine dependence, cigarettes, uncomplicated Alcohol use disorder Smoking Hepatitis C IV drug user Surgical History History of facial surgery Family History Family History Maternal Uncle Cancer Paternal Uncle Cancer Maternal Uncle Cancer Maternal Uncle Cancer Father Arthritis Congenital polycystic lung Mother Diabetes Social History Social History Patient Tobacco Use Status: Current everyday Tobacco user Tobacco use type: Cigarette Cigarette Packs Per Day: 0.5 Cigarettes Per Day: 10.0 Years Smoked: 30 Advance Directives: No Advance Directives Information Provided: No Do you have a plan to hurt others: No Plan Physical Exam Vital Signs: Vital Signs: Last Vital Signs Temp 98.3 F 08/11/24 13:07 Pulse 68 08/11/24 13:07 Resp 16 08/11/24 13:07 BP 145/99 H 08/11/24 13:07 Pulse Ox 98 08/11/24 13:07 O2 Del Method Room Air 08/11/24 13:07 BMI result Body Mass Index 27.0 hypertensive, vitals otherwise wnl. afebrile. General: Well appearing, in no acute distress. Skin: Warm, dry, intact. No rashes or lesions. Head: Normocephalic, atraumatic. EENT: Hearing is intact b/l. Conjunctiva clear. Sclera is anicteric. PERRLA.Moist mucous membranes.? Neck: Supple without LAD Cardiac: Chest wall symmetric. RRR Lungs: Normal respiratory effort without accessory muscle use. CTA bilaterally Back: No midline spinous or paraspinal tenderness. No step off deformity. Ext: +3cm x 5cm area of erythema noted to dorsal aspect of right foot. no pointing or discharge. no streaking. warm, tender to palpation, no fluctuance. no palpable deformity or crepitus. FROM intact to right ankle and all toes. 2+ dp/pt pulse intact. Neuro: AOx3. Normal speech. Sensation intact to light touch. NV intact distally. Ambulating with steady gait. Psych: Appropriate mood and affect. Responds appropriately to questions. Course Course Course Narrative: 1255 -- exam consistent with cellulitis. labs without leukocytosis or left shift. chemistry without acute electrolyte abnormality requiring intervenation. uric acid wnl. no evidence of osteo or abscess on xr. no fracture. given anaphylactic reaction to PCN, will sent patient home with doxy and clinda for coverage. area marked with skin pen. Patient has remained stable throughout ED visit today. Discussed worrisome signs and symptoms and when to return to the ED. All questions answered at this time. Patient is agreeable with disposition and stable for discharge. Medical Decision Making Medical Decision Making [facility] Narrative: 54 year old male with pmhx significant for IVDU (sober x months), hepatitis c, etoh use disorder presents to the ED today for evaluation of redness/swelling to right foot x24 hours. Hypertensive, afebrile. non toxic appearing and in NAD. on exam of right foot, 3cm x 5cm area of erythema noted to dorsal aspect of right foot. no pointing or discharge. no streaking. warm, tender to palpation, no fluctuance. no palpable deformity or crepitus. FROM intact to right ankle and all toes. 2+ dp/pt pulse intact. sensation intact. ambulating with steady gait. Differential diagnosis includes cellulitis, gout, pseudogout. lower suspicion for osteomyelitis, abscess. unlikely lymphagitis. Plan for labs, XR, re-evaluation. Differential Diagnosis Differential Diagnoses: The differential diagnosis associated with the presentation includes as above Admission/Observation not indicated Lab Data [facility] Lab Attestation statement: I reviewed the patient's lab results. as above. 08/11/24 10:26 08/11/24 10:26 Labs: Lab Results 08/11/24 Range/Units 10: WBC 9.2 (4.8-10.8) X10*3/uL RBC 5.26 (4.60-5.80) X10*6/uL Hgb 16.9 (14.0-18.0) g/dl Hct 47.9 (42.0-52.0) % MCV 91.1 (80.0-98.0) fL MCH 32.1 (27.0-33.0) pg MCHC 35.3 (31.0-36.0) g/dl RDW 13.6 (11.0-16.0) % Plt Count 143 L (160-400) X10*3/uL MPV 11.5 (9.4-12.4) fL Immature Gran % (Auto) 0.4 (0.0-0.4) % Neut % (Auto) 64.1 (45-73) % Lymph % (Auto) 24.5 (20-40) % [place] % (Auto) 9.2 (2-11) % Eos % (Auto) 1.3 (0-4) % Baso % (Auto) 0.5 (0-2) % Lymph # (Auto) 2.3 (1.2-4.9) X10*3/uL [place] # (Auto) 0.9 (0.1-1.2) X10*3/uL Eos # (Auto) 0.1 (0.0-0.4) X10*3/uL Baso # (Auto) 0.1 (0.0-0.2) X10*3/uL Abs Immat Gran (auto) 0.04 H (0.00-0.03) X10*3/uL Absolute Neuts (auto) 5.9 (2.0-8.3) x10*3/uL Absolute Nucleated RBC 0.000 (0.0-0.012) X10*3/uL Nucleated RBC % (auto) 0.0 (0.0-0.2) /100WBC Sodium 139 (135-145) mmol/L Potassium 4.4 (3.3-5.1) mmol/L Chloride 104 (96-108) mmol/L Carbon Dioxide 28 (22-29) mmol/L Anion Gap 11 L (12-20) BUN 14 (9-16) mg/dL Creatinine 0.93 (0.5-1.4) mg/dL Estim Creat Clear Calc 105.5 Estimated GFR > 60 Random Glucose 90 (60-115) mg/dL Uric Acid 5.8 (3.4-7.0) mg/dL Calcium 9.7 (8.4-10.2) mg/dL Total Bilirubin 0.4 (0.0-1.0) mg/dL AST 15 (5-37) U/L ALT 15 (0-40) U/L Alkaline Phosphatase 88 (39-117) U/L Total Protein 7.7 (6.5-8.0) g/dL Albumin 4.2 (3.5-5.0) g/dL Independent Interpretation I performed an independent interpretation of an: Plain X-Ray Interpretation: xr right foot without fracture or evidence of osseous destruction. Radiology Impression Discussion of test interpretation with radiology: I have reviewed the radiologist's reading. External Record Review External record reviewed: Inpatient record Prescription Management I considered prescription management with: Antibiotic (clindamycin, doxy) Chronic Conditions Patient?s care impacted by: Other (IVDU) Social Determinants Patient?s care significantly limited by Social Determinants of Health including: Alcoholism and drug addiction in family and Other Social Determinant of Health Critical Care Time Critical Care Time Critical Care Time: No Discharge Plan Discharge Clinical Impression: Cellulitis Patient Disposition: Home, Self-Care Instructions: Cellulitis (ED), Warm Compress or Soak (ED) Additional Instructions: Your blood work today is reassuring. The xray of your right foot does not show infection within the bone. Your physical exam findings are consistent with cellulitis (skin infection). You will be given a prescription for antibiotics (clindamycin and Doxycycline). Please take the antibiotics as directed for the full course of the medication. If the area of redness progresses past the skin pen marking despite treatment, please return to the ED. I recommend you take 600mg ibuprofen every 6 hours or Tylenol 650mg every 6 hours as needed for pain. If needed, you can alternate these medications so that you take one medication every 3 hours. For example, at noon take ibuprofen, then at 3pm take Tylenol, then at 6pm take ibuprofen. Please schedule an appointment with your primary care provider as soon as possible for follow up. If you do not have one, a referral has been provided. Return to the Emergency Department if you experience fevers greater than 100.4F, increase in area of redness or swelling, increasing amount of discharge from the area, increased tenderness around the area, or any other concerning symptoms. Prescriptions: New clindamycin HCl 300 mg capsule 300 mg PO TID 7 Days Qty: 21 0RF doxycycline hyclate 100 mg capsule 100 mg PO BID 7 Days Qty: 14 0RF No Action cyclobenzaprine 10 mg tablet 10 mg PO TID PRN (Reason: muscle pain or spasm) Qty: 20 0RF methadone 5 mg/5 mL solution 120 mg PO DAILY Referrals: [facility] Family Medicine [Provider Group] [facility] Primary [facility], [place] [Provider Group] [facility] Primary [facility],[place] [Provider Group] Stand Alone Forms: Work/School Release Interventions: ED Discharge Assessment Last Done: 08/11/24 13:07 Discharge Date/Time: 08/11/24 13:07 Print Language: [place]
[2024-08-11 12:37] LABS: Uric Acid 5.8 mg/dL (3.4-7.0)
[2024-08-11 13:07] VITALS: BP 145/99; PULSE 68; RESP 16; TEMP 36.8; O2SAT 98
== END 2024-08-11 13:07 | disposition home or self-care (01) ==
PROVIDERS: Physician Assistant Medical; Emergency Provider Emergency Medicine
DX: L03.115 Cellulitis of right lower limb (principal); M79.671 Pain in right foot; R60.0 Localized edema; Z79.899 Other long term (current) drug therapy; F17.210 Nicotine dependence, cigarettes, uncomplicated
CPT/HCPCS: 36415; 73620; 80053; 84550; 85025; 99283

== ENCOUNTER 2025-09-25 08:48 | Emergency (ER) | payer SELFPAY ==
--- NOTE | ~2025-09-25 | XR_ITS ---
EXAMINATION: XR TOES, RIGHT CLINICAL INFORMATION: wound, ? osteo COMPARISON: 08/11/2024 right foot radiograph. TECHNIQUE: 3 views of the right toes were obtained. FINDINGS: No definite fracture or dislocation. On the lateral projection, there appears to be erosion of the base of the distal phalanx of the hallux, highly suspicious for changes of osteomyelitis. There is a directly abutting plantar soft tissue ulceration in the soft tissues. There is soft tissue swelling of the hallux. Mild degenerative changes are present in the first MTP joint and interphalangeal joint of the hallux. XR/XR toe RT min 2V IMPRESSION: 1. Soft tissue swelling of the hallux with a plantar ulceration in the soft tissues. 2. There is bony erosion of the plantar aspect of the distal phalanx of the hallux, highly suspicious for osteomyelitis. Electronically signed by: Nuno Echols MD 09/25/2025 09:41 AM TEDDY
[2025-09-25 08:52] VITALS: BP 156/90; PULSE 144; RESP 20; TEMP 37.7; O2SAT 95; BMI 27.4
--- NOTE | 2025-09-25 09:05 | ECG_ITS ---
Test Reason : TACHY Blood Pressure : */* mmHG Vent. Rate : 79 BPM Atrial Rate : 79 BPM P-R Int : 154 ms QRS Dur : 92 ms QT Int : 390 ms P-R-T Axes : 78 -10 44 degrees QTcB Int : 447 ms Normal sinus rhythm Normal ECG When compared with ECG of 23-May-2023 18:12, No significant change was found Referred By: Generic ED Physician Electronically Signed By: ROOPA RIVERA
[2025-09-25 09:58] VITALS: PULSE 77; RESP 16; O2SAT 94
[2025-09-25 10:06] LABS: MANUAL DIFF FLAG NO
[2025-09-25 10:08] LABS: Hematocrit 44.5 % (42.0-52.0); Hemoglobin 15.4 g/dl (14.0-18.0); Imm Gran Abs Auto 0.07 X10*3/uL (0.00-0.03); Imm Gran Pct Auto 0.5 % (0.0-0.4); Lymphocytes Absolute Auto 1.0 X10*3/uL (1.2-4.9); Mean Corpuscular HGB Conc 34.6 g/dl (31.0-36.0); Mean Corpuscular Hemoglobin 31.8 pg (27.0-33.0); Mean Corpuscular Volume 91.8 fL (80.0-98.0); NRBC Abs Auto 0.000 X10*3/uL (0.0-0.012); NRBC Pct Auto 0.0 /100WBC (0.0-0.2); Platelet Count 157 X10*3/uL (160-400); Red Blood Count 4.85 X10*6/uL (4.60-5.80); White Blood Count 15.3 X10*3/uL (4.8-10.8)
--- NOTE | 2025-09-25 10:15 | ED_ITS ---
HPI - General Adult General Chief complaint: Extremity Injury, Lower Stated complaint: Injury Time Seen by Provider: 09/25/25 09:48 Source: patient Mode of arrival: ambulatory Limitations: no limitations History of Present Illness ED Provider: DEMETRIO MCCLENDON PA-C HPI narrative: 55-year-old male with past medical history significant for nicotine dependence, hepatitis B and C, IVDU presents to the ED today for evaluation of chronic wound to right great toe x 1 year. He states that the area began as a callus which opened. Reports the area has scabbed over multiple times. He presented to our ED a year ago and was prescribed oral antibiotics. He reports symptoms breifly improved. Now, the wound has opened further and is draining purulent discharge. He is going through multiple bandages/day. Reports redness is now extending up his right foot. Admits to increased pain. Reports subjective fever/chills. Admits to hx of IVDU, injecting fentanyl. He last injected 2-3 months ago. Denies any current drug use. Denies hx of DM, gout. Related Data Home Medications ?Medication ?Instructions ?Recorded ?Confirmed methadone 5 mg/5 mL oral solution 120 mg PO DAILY 08/2705/08/23 Previous Rx's ?Medication ?Instructions ?Recorded cyclobenzaprine 10 mg tablet 10 mg PO TID PRN muscle p ain or 05/23/23 spasm #20 tabs clindamycin HCl 300 mg capsule 300 mg PO TID 7 days #2 1 caps 08/11/24 doxycycline hyclate 100 mg capsule 100 mg PO BID 7 day s #14 caps 08/11/24 clindamycin HCl 300 mg capsule 300 mg PO TID 7 days #2 1 caps 09/25/25 (Cleocin HCl) doxycycline hyclate 100 mg tablet 100 mg PO BID 7 days #14 tabs 09/25/25 Allergies Allergy/AdvReac Type Severity Reaction Status Date / Time Penicillins (PENICILLINS) Allergy Severe ANAPHYLAXIS Verified 09/25/25 08:55 Review of Systems 2 Review of Systems: Yes all other systems are reviewed and are negative PMFSH Past Medical History Attestation statement: The following information was validated with the patient. Source: old records reviewed and nursing notes reviewed Medical History Nicotine dependence, cigarettes, uncomplicated Alcohol use disorder Smoking Hepatitis C IV drug user Surgical History History of facial surgery Family History Family History Maternal Uncle Cancer Paternal Uncle Cancer Maternal Uncle Cancer Maternal Uncle Cancer Father Arthritis Congenital polycystic lung Mother Diabetes Social History Social History Patient Tobacco Use Status: Current everyday Tobacco user Tobacco use type: Cigarette Cigarette Packs Per Day: 0.5 Cigarettes Per Day: 10.0 Years Smoked: 30 Advance Directives: No Advance Directives Information Provided: No Do you have a plan to hurt others: No Plan Physical Exam ED Vital Signs: Vital Signs - 24 hr 09/25/25 08:52 09/25/25 09:58 09/25/25 12:41 Temperature 99.8 F 98.4 F Pulse Rate 144 H 77 59 Respiratory Rate 20 16 18 Blood Pressure 156/90 H 117/67 Pulse Oximetry 95 94 98 Oxygen Delivery Method Room Air Room Air 09/25/25 12:57 Temperature 98.4 F Pulse Rate 59 Respiratory Rate 18 Blood Pressure 117/67 Pulse Oximetry 98 Oxygen Delivery Method Room Air BMI result Body Mass Index 27.4 hypertensive, vitals are otherwise wnl General: Well appearing, in no acute distress. Skin: Warm, dry, intact. No rashes or lesions. Head: Normocephalic, atraumatic. EENT: Hearing is intact b/l. Conjunctiva clear. PERRLA. EOM intact. Moist mucous membranes.? Cardiac: Chest wall symmetric. RRR Lungs: Normal respiratory effort without accessory muscle use. CTA bilaterally Ext: +see photo of right foot below. there is an 2cm x 2cm ulcerated lesion to plantar aspect of right great toe with purulent drainage and associated edema, there is surrounding erythema tracking proximally from ulcer to mid foot, warm, ttp, FROM intact to 2-5th toes, difficulty w/ ROM of right great toe d/t swelling. strong dp pulse intact. cap refill <2 seconds. Neuro: AOx3. Normal speech. Ambulating with steady gait. Course Course Course Narrative: CBC showing leukocytosis to 15.3 with left shift. No anemia. H&H stable. Chemistry without acute electrolyte abnormality requiring intervention. No LAN. Random glucose 118, no anion gap. Liver function around baseline. Lactic WNL at 0.9. Blood cultures pending. Negative COVID, flu, RSV. X-ray right great toe showing soft tissue swelling of the hallux with a plantar ulceration in the soft tissue, bony erosion of the plantar aspect of distal phalanx of her valgus, highly suspicious for osteomyelitis. Discussed all workup results with patient. Patient should be admitted to medicine for management of osteomyelitis with IV antibiotics. Patient states that he can not stay to be admitted as he cares for his mother at home who is on hospice. He is unable to make arrangements at this time. After a long discussion of possible options, patient states that he cannot and will not stay today. he will be signing out AMA and states that he will return tomorrow for care. Patient is choosing to leave AMA and with informed refusal. Patient was advised reasoning for hospital admission (management of osteomyelitis w/ IV abx), and provided with a full explanation of the rationale. The risks of leaving were explained to the patient and include, but not are not limited to, worsening of known or currently on known conditions, permanent disability, and from undiagnosed or untreated conditions. The patient has the capacity to make this decision and has the capacity to understand the clinical situation and my explanation of the risks of refusing. The patient voluntarily accepts these risks. Patient was given the opportunity to ask questions and reconsider. I will be sending oral abx to the pharmacy for him. Medications Administered Discontinued Medications Generic Name Dose Route Start Last Admin Trade Name Freq PRN Reason Stop Dose Admin Vancomycin HCl 2,000 mg in 500 mls @ 250 mls/hr 09/25/25 10:44 09/25/25 12:54 Vancomycin/Ns IV 09/25/25 12:43 0 mls/hr ONCE ONE Infusion Ceftriaxone Sodium 1 gm/ 50 mls @ 100 mls/hr 09/25/25 10:53 09/25/25 12:17 Sodium Chloride IV 09/25/25 11:22 Infused ONCE ONE Infusion Acetaminophen 1,000 mg in 100 mls @ 400 mls/hr 09/25/25 11:04 09/25/25 12:01 Ofirmev IV 09/25/25 11:18 Infused ONCE ONE Infusion Sodium Chloride 1,000 mls @ 999 mls/hr 09/25/25 11:15 09/25/25 12:51 Ns IV 09/25/25 12:15 Infused .Q1H1M FAIZA Infusion Morphine Sulfate 4 mg 09/25/25 10:59 09/25/25 11:46 Morphine Sulfate 4 Mg/Ml Cartridge IVPUSH 09/25/25 11:00 4 mg ONCE ONE Administration Protocol Medical Decision Making Medical Decision Making [facility] Narrative: 55-year-old male with past medical history significant for nicotine dependence, hepatitis B and C, IVDU presents to the ED today for evaluation of chronic wound to right great toe x 1 year. Low grade temp of 99.5F. inital triage noted patient to be tachycardic to 144. Upon my entry into room, patient's HR is 80 bpm. he denies any sob, chest pain or palpitations. Unclear if the 144 was a true reading. will continue to monitor. see photo of right foot above. there is an 2cm x 2cm ulcerated lesion to plantar aspect of right great toe with purulent drainage and associated edema, there is surrounding erythema tracking proximally from ulcer to mid foot, warm, ttp, FROM intact to 2-5th toes, difficulty w/ ROM of right great toe d/t swelling. strong dp pulse intact. cap refill <2 seconds. Differential diagnosis includes chronic wound, foot ulcer, cellulitis, osteomyelitis Plan for labs, x-ray, lactate, blood cultures, IV antibiotics, pain control and re-evaluation. Differential Diagnosis Differential Diagnoses: The differential diagnosis associated with the presentation includes as above. Admission/Observation Consideration of admission/observation: Escalation of care including admission/observation considered Recommended admission to medicine for management of osteomyelitis with IV antibiotics. Patient states that he can not stay for admission, has to arrange care for his mother who was on hospice. Is choosing to leave the ED against medical advice. States that he will return for treatment tomorrow. Lab Data [facility] Lab Attestation statement: I reviewed the patient's lab results. as above. 09/25/25 09:56 09/25/25 09:56 Labs: Lab Results 09/25/25 Range/Units 09:56 WBC 15.3 H (4.8-10.8) X10*3/uL RBC 4.85 (4.60-5.80) X10*6/uL Hgb 15.4 (14.0-18.0) g/dl Hct 44.5 (42.0-52.0) % MCV 91.8 (80.0-98.0) fL MCH 31.8 (27.0-33.0) pg MCHC 34.6 (31.0-36.0) g/dl RDW 13.8 (11.0-16.0) % Plt Count 157 L (160-400) X10*3/uL MPV 11.4 (9.4-12.4) fL Immature Gran % (Auto) 0.5 H (0.0-0.4) % Neut % (Auto) 83.3 H (45-73) % Lymph % (Auto) 6.3 L (20-40) % [place] % (Auto) 9.6 (2-11) % Eos % (Auto) 0.0 (0-4) % Baso % (Auto) 0.3 (0-2) % Lymph # (Auto) 1.0 L (1.2-4.9) X10*3/uL [place] # (Auto) 1.5 H (0.1-1.2) X10*3/uL Eos # (Auto) 0.0 (0.0-0.4) X10*3/uL Baso # (Auto) 0.0 (0.0-0.2) X10*3/uL Abs Immat Gran (auto) 0.07 H (0.00-0.03) X10*3/uL Absolute Neuts (auto) 12.8 H (2.0-8.3) x10*3/uL Absolute Nucleated RBC 0.000 (0.0-0.012) X10*3/uL Nucleated RBC % (auto) 0.0 (0.0-0.2) /100WBC Sodium 138 (135-145) mmol/L Potassium 4.3 (3.3-5.1) mmol/L Chloride 102 (96-108) mmol/L Carbon Dioxide 26 (22-29) mmol/L Anion Gap 14 (12-20) BUN 18 H (9-16) mg/dL Creatinine 1.05 (0.5-1.4) mg/dL Estim Creat Clear Calc 92.4 Estimated GFR > 60 Random Glucose 118 H (60-115) mg/dL Lactic Acid 0.9 (0.5-2.0) mmol/L Calcium 9.5 (8.4-10.2) mg/dL Total Bilirubin 1.0 (0.0-1.0) mg/dL Direct Bilirubin 0.2 (0.0-0.5) mg/dL AST 25 (5-37) U/L ALT 13 (0-40) U/L Alkaline Phosphatase 95 (39-117) U/L Total Protein 8.4 H (6.5-8.0) g/dL Albumin 4.0 (3.5-5.0) g/dL Influenza Type A (PCR) NEGATIVE (Negative) Influenza Type B (PCR) NEGATIVE (Negative) RSV RNA Qual (PCR) NEGATIVE (Negative) SARS-CoV-2 RNA (RT-PCR) NEGATIVE (Negative) Independent Interpretation I performed an independent interpretation of an: EKG and Plain X-Ray Radiology Impression Discussion of test interpretation with radiology: I have reviewed the radiologist's reading. External Record Review External record reviewed: Inpatient record Prescription Management I considered prescription management with: Pain Medication and Antibiotic Chronic Conditions Patient?s care impacted by: Other (IVDU) Social Determinants Patient?s care significantly limited by Social Determinants of Health including: Other Social Determinant of Health Critical Care Time Critical Care Time Critical Care Time: Yes Total Critical Care Time: 38 Attestation: Critical care time in the amount of 38 minutes has been provided to the patient in terms of direct patient care, frequent reevaluation, on IV morphine, review and interpretation of medical data and results, and management of potentially life-threatening conditions. This is all outside of any medical procedures. Discharge Plan Discharge Clinical Impression: Osteomyelitis Patient Disposition: Left Against Medical Advice Instructions: Osteomyelitis (ED) Additional Instructions: You were evaluated in the ED today for a wound to your right great toe. Your blood work shows an elevated white count, consistent with infection. The xray of your right foot shows findings concerning for infection within your bone, termed osteomyelitis. As discussed, the treatment for this is with IV antibiotic therapy. Oral medications typically will not resolve infections within your bone. You state that you cannot stay for admission as you have to care for your mother at home. You are choosing to sign out against medical advice and understand the risks that are associated with this including worsening infection and even . You were given a dose of IV antibiotics while in the ED today. I am sending you home with clindamycin and doxycycline for you to take in the meantime until you are able to return. Take tylenol/motrin at home for pain. You may return to the ED for treatment at any time. Prescriptions: New clindamycin HCl [Cleocin HCl] 300 mg capsule 300 mg PO TID 7 Days Qty: 21 0RF doxycycline hyclate 100 mg tablet 100 mg PO BID 7 Days Qty: 14 0RF No Action cyclobenzaprine 10 mg tablet 10 mg PO TID PRN (Reason: muscle pain or spasm) Qty: 20 0RF clindamycin HCl 300 mg capsule 300 mg PO TID 7 Days Qty: 21 0RF doxycycline hyclate 100 mg capsule 100 mg PO BID 7 Days Qty: 14 0RF methadone 5 mg/5 mL solution 120 mg PO DAILY Referrals: Physician,None [Primary Care Provider, Medical] Stand Alone Forms: Against Medical Advice, Work/School Release Interventions: ED Discharge Assessment Last Done: 09/25/25 12:57 Discharge Date/Time: 09/25/25 13:11 Print Language: [place]
[2025-09-25 10:41] LABS: Alanine Aminotransferase 13 U/L (0-40); Albumin Level 4.0 g/dL (3.5-5.0); Alkaline Phosphatase 95 U/L (39-117); Anion Gap 14 (12-20); Aspartate Amino Transferase 25 U/L (5-37); Blood Urea Nitrogen 18 mg/dL (9-16); Calcium 9.5 mg/dL (8.4-10.2); Carbon Dioxide 26 mmol/L (22-29); Chloride 102 mmol/L (96-108); Creatinine Clr Calc Pharmacy 92.4; Estimated Glomerular Filt Rate > 60; Potassium 4.3 mmol/L (3.3-5.1); Sodium 138 mmol/L (135-145); Total Protein 8.4 g/dL (6.5-8.0)
[2025-09-25 10:48] LABS: Resp Syncy Virus RNA Qual PCR NEGATIVE (Negative); SARS COV2 PCR INHOUSE NEGATIVE (Negative)
--- OUTSIDE RECORDS SUMMARY | 2025-09-25 11:09 | XMS_ITS ---
Author Name [facility] Organization Unknown Care Team Organization Name Specialty Phone Email Start Date End Da te [facility] LALI [facility] Primary Care 11/03/2022 06/13/2024
[2025-09-25] MEDS: vancomycin/NS 2,000 MG/500 ML PLAST..BAG 250 MG IV (12:12)
[2025-09-25 12:41] VITALS: BP 117/67; PULSE 59; RESP 18; TEMP 36.9; O2SAT 98
[2025-09-25 12:57] VITALS: BP 117/67; PULSE 59; RESP 18; TEMP 36.9; O2SAT 98
--- NOTE | 2025-09-25 13:11 | PC.NURSE ---
L great toe wound dsd applied as ordered. Pt ambulated out of ED without diff
== END 2025-09-25 13:11 | disposition left against medical advice (07) ==
PROVIDERS: Emergency Provider Emergency Medicine Emergency Medical Services
DX: M86.9 Osteomyelitis, unspecified (principal); S91.101D Unspecified open wound of right great toe without damage to nail, subsequent encounter; X58.XXXD Exposure to other specified factors, subsequent encounter; Z88.0 Allergy status to penicillin; Z03.818 Encounter for observation for suspected exposure to other biological agents ruled out
CPT/HCPCS: 73660; 80048; 80076; 83605; 85025; 87040; 87637; 93005; 96361; 96365; 96375; 99284; J0131; J0696; J2270; J3373

== ENCOUNTER → 2025-09-25 09:05 | Outpatient (BNV) | payer SELFPAY | PROVIDERS: Emergency Provider Emergency Medicine Emergency Medical Services; Visit Provider Internal Medicine | DX: R00.0 Tachycardia, unspecified (principal) | CPT/HCPCS: 93010 ==

== ENCOUNTER → 2025-09-25 09:16 | Outpatient (BNV) | payer SELFPAY | PROVIDERS: Emergency Provider Emergency Medicine Emergency Medical Services; Visit Provider Radiology Diagnostic Radiology | DX: M86.171 Other acute osteomyelitis, right ankle and foot (principal); M79.89 Other specified soft tissue disorders | CPT/HCPCS: 73660 ==

== ENCOUNTER 2025-10-08 11:19 | Inpatient (IN) | payer MEDICAID, SELFPAY ==
--- NOTE | ~2025-10-08 | XR_ITS ---
CLINICAL HISTORY: infection to right great toe 3 view right great toe Comparison: None provided Findings: No fractures or dislocations. Soft tissue edema and subcutaneous gasis demonstrated about the right great toe with mottled appearance of the distal phalanx concerning for developing osteomyelitis. No radiopaque foreign body. IMPRESSION: Soft tissue edema and subcutaneous gas about the right great toe with mottled appearance of the distal phalanx concerning for developing osteomyelitis. This document has been electronically signed by: nAgel Marie MD on 10/08/2025 12:07:46
--- NOTE | ~2025-10-08 | MR_ITS ---
CLINICAL HISTORY: rule out osteo MR right foot with and without gadolinium Comparison: CR - XR TOE RT MIN 2V - 10/08/25 11:37 EST CR/SR - XR FOOT 1-2 VIEWS RIGHT - 08/11/24 10:32 EDT Findings: There is tear and retraction of the flexor hallucis longus with tendon within the 1st digit volar plate level, axial image number 27 of 50 series 5. No effusion. The right foot 1st digit demonstrates distal phalanx low T1 signal with matching in increased T2 signal. Moreover, the 1st metatarsophalangeal joint demonstrates narrowing and heterotopic marginal bone formation. IMPRESSION: 1. Tear with retraction of the flexor hallucis longus tendon at the 1st digit volar plate level. 2. Distal phalanx of the 1st digit shows abnormal bone marrow signal; osteomyelitis. 3. 1st metatarsophalangeal joint narrowing with marginal osteophytes, consistent with osteoarthritis. This document has been electronically signed by: Angel Luis Garcia MD on 10/08/2025 19:45:53
[2025-10-08 11:27] VITALS: BP 111/49; PULSE 95; RESP 16; TEMP 36.7; O2SAT 94; BMI 27.1
--- NOTE | 2025-10-08 11:29 | ED.LOWEXIN ---
HPI - Extremity Injury (Lower) General Chief Complaint: Wound/Laceration Stated Complaint: injury, med refill Time Seen by Provider: 10/08/25 14:37 Related Data Home Medications ?Medication ?Instructions ?Recorded ?Confirmed methadone 5 mg/5 mL oral solution 120 mg PO DAILY 09/22/22 05/08/23 Previous Rx's ?Medication ?Instructions ?Recorded cyclobenzaprine 10 mg tablet 10 mg PO TID PRN muscle pain or 05/23/23 spasm #20 tabs clindamycin HCl 300 mg capsule 300 mg PO TID 7 days #21 caps 08/11/24 doxycycline hyclate 100 mg capsule 100 mg PO BID 7 days #14 caps 08/11/24 clindamycin HCl 300 mg capsule 300 mg PO TID 7 days #21 caps 09/25/25 (Cleocin HCl) doxycycline hyclate 100 mg tablet 100 mg PO BID 7 days #14 tabs 09/25/25 Allergies Allergy/AdvReac Type Severity Reaction Status Date / Time Penicillins (PENICILLINS) Allergy Severe ANAPHYLAXIS Verified 10/08/25 11:29 [facility] Past Medical History Medical History Nicotine dependence, cigarettes, uncomplicated Alcohol use disorder Smoking Hepatitis C IV drug user Surgical History History of facial surgery Family History Family History Maternal Uncle Cancer Paternal Uncle Cancer Maternal Uncle Cancer Maternal Uncle Cancer Father Arthritis Congenital polycystic lung Mother Diabetes Social History Social History Patient Tobacco Use Status: Current everyday Tobacco user Tobacco use type: Cigarette Cigarette Packs Per Day: 0.5 Cigarettes Per Day: 10.0 Years Smoked: 30 Smoked in Last 30 Days: Yes Use of substances other than those prescribed or required for medical reasons: No Advance Directives: No Advance Directives Information Provided: No Physical Exam Vital Signs: Vital Signs: Last Vital Signs Temp 97.8 F 10/08/25 15:49 Pulse 58 10/08/25 15:49 Resp 16 10/08/25 15:49 BP 121/76 10/08/25 15:49 Pulse Ox 96 10/08/25 15:49 O2 Del Method Room Air 10/08/25 15:49 BMI result Body Mass Index 27.1 Course Course Course Narrative: This is a Rapid Medical Examination (RME) performed by Kristine Giles PA-C in triage. Full HPI, ROS, assessment and treatment plan per primary provider in the Main ED. Hx: 55 yo M hx nicotine dependence, hepatitis B and C, IVDU here w/ wound to right great toe x 1 year - seen here 2 weeks ago, diagnosed w/ osteomyelitis of the right great toe - declined admission and left AMA as he had to care for his mother. he has been taking doxycycline/clindamycin at home. he now returns for care. states pain has improved however no change to the wound. Plan: labs, lactic, BC, xr Medications Administered Generic Name Dose Route Start Last Admin Trade Name Freq PRN Reason Stop Dose Admin Cefepime HCl 2 gm in 50 mls @ 100 mls/hr 10/08/25 16:30 10/08/25 16:33 Maxipime IV 10/08/25 16:59 100 mls/hr ONCE ONE Administration Medical Decision Making Lab Data 10/08/25 12:08 10/08/25 12:08 Labs: Lab Results 10/08/25 10/08/25 Range/Units 12:07 12:08 WBC 9.2 (4.8-10.8) X10*3/uL RBC 4.93 (4.60-5.80) X10*6/uL Hgb 15.4 (14.0-18.0) g/dl Hct 45.1 (42.0-52.0) % MCV 91.5 (80.0-98.0) fL MCH 31.2 (27.0-33.0) pg MCHC 34.1 (31.0-36.0) g/dl RDW 13.8 (11.0-16.0) % Plt Count 192 (160-400) X10*3/uL MPV 11.3 (9.4-12.4) fL Immature Gran % (Auto) 0.3 (0.0-0.4) % Neut % (Auto) 82.1 H (45-73) % Lymph % (Auto) 11.2 L (20-40) % Graves % (Auto) 5.9 (2-11) % Eos % (Auto) 0.3 (0-4) % Baso % (Auto) 0.2 (0-2) % Lymph # (Auto) 1.0 L (1.2-4.9) X10*3/uL Graves # (Auto) 0.5 (0.1-1.2) X10*3/uL Eos # (Auto) 0.0 (0.0-0.4) X10*3/uL Baso # (Auto) 0.0 (0.0-0.2) X10*3/uL Abs Immat Gran (auto) 0.03 (0.00-0.03) X10*3/uL Absolute Neuts (auto) 7.5 (2.0-8.3) x10*3/uL Absolute Nucleated RBC 0.000 (0.0-0.012) X10*3/uL Nucleated RBC % (auto) 0.0 (0.0-0.2) /100WBC ESR 96 H (1-20) MM/HR Sodium 136 (135-145) mmol/L Potassium 4.4 (3.3-5.1) mmol/L Chloride 100 (96-108) mmol/L Carbon Dioxide 27 (22-29) mmol/L Anion Gap 13 (12-20) BUN 17 H (9-16) mg/dL Creatinine 1.04 (0.5-1.4) mg/dL Estim Creat Clear Calc 93.3 Estimated GFR > 60 Random Glucose 129 H (60-115) mg/dL Lactic Acid 0.8 (0.5-2.0) mmol/L Calcium 9.8 (8.4-10.2) mg/dL Magnesium 2.3 (1.6-2.6) mg/dL Total Bilirubin 0.5 (0.0-1.0) mg/dL AST 24 (5-37) U/L ALT 11 (0-40) U/L Alkaline Phosphatase 97 (39-117) U/L C-Reactive Protein 3.98 H (< or = 0.50) mg/dL Total Protein 8.9 H (6.5-8.0) g/dL Albumin 3.9 (3.5-5.0) g/dL Discharge Plan Discharge Clinical Impression: Osteomyelitis Patient Disposition: Admitted As Inpatient
[2025-10-08 12:15] LABS: MANUAL DIFF FLAG NO
[2025-10-08 12:19] LABS: Hematocrit 45.1 % (42.0-52.0); Hemoglobin 15.4 g/dl (14.0-18.0); Imm Gran Abs Auto 0.03 X10*3/uL (0.00-0.03); Imm Gran Pct Auto 0.3 % (0.0-0.4); Lymphocytes Absolute Auto 1.0 X10*3/uL (1.2-4.9); Mean Corpuscular HGB Conc 34.1 g/dl (31.0-36.0); Mean Corpuscular Hemoglobin 31.2 pg (27.0-33.0); Mean Corpuscular Volume 91.5 fL (80.0-98.0); NRBC Abs Auto 0.000 X10*3/uL (0.0-0.012); NRBC Pct Auto 0.0 /100WBC (0.0-0.2); Platelet Count 192 X10*3/uL (160-400); Red Blood Count 4.93 X10*6/uL (4.60-5.80); White Blood Count 9.2 X10*3/uL (4.8-10.8)
[2025-10-08 12:40] LABS: Alanine Aminotransferase 11 U/L (0-40); Albumin Level 3.9 g/dL (3.5-5.0); Alkaline Phosphatase 97 U/L (39-117); Anion Gap 13 (12-20); Aspartate Amino Transferase 24 U/L (5-37); Blood Urea Nitrogen 17 mg/dL (9-16); Calcium 9.8 mg/dL (8.4-10.2); Carbon Dioxide 27 mmol/L (22-29); Chloride 100 mmol/L (96-108); Creatinine Clr Calc Pharmacy 93.3; Estimated Glomerular Filt Rate > 60; Magnesium 2.3 mg/dL (1.6-2.6); Potassium 4.4 mmol/L (3.3-5.1); Sodium 136 mmol/L (135-145); Total Protein 8.9 g/dL (6.5-8.0)
[2025-10-08 15:49] VITALS: BP 121/76; PULSE 58; RESP 16; TEMP 36.6; O2SAT 96
[2025-10-08] MEDS: cefEPime HCl/D5W 2 GM/50 ML PIGGYBACK IV (16:33)
--- NOTE | 2025-10-08 16:49 | PM.IMHP ---
History of Present Illness Date of Service: 10/08/25 Attending physician on admission: Jacoby Smith Chief Complaint: foot wound This is a 55-year-old male who presents to the emergency department with foot wound. Patient reports foot wound has been present for likely up to a year. He was seen in the emergency department on September 25 when it got substantially worse. 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 He was discharged home with oral antibiotics. His mother recently and he now returns to the emergency department for evaluation. In the emergency department x-ray concerning for possible osteomyelitis, inflammatory markers are elevated. Patient was treated with IV cefepime and vancomycin and the decision was made to admit him to the hospital for further management of cellulitis with concern for osteomyelitis. Review of Systems Review of Systems: Yes all other systems are reviewed and are negative Constitutional: Constitutional: Denies chills and Denies fever(s) Cardiovascular: Cardiovascular: Denies chest pain and Denies palpitations Endocrine: Endocrine: Denies palpitations [facility] Medical History Nicotine dependence, cigarettes, uncomplicated Alcohol use disorder Smoking Hepatitis C IV drug user Family History Maternal Uncle Cancer Paternal Uncle Cancer Maternal Uncle Cancer Maternal Uncle Cancer Father Arthritis Congenital polycystic lung Mother Diabetes Surgical History History of facial surgery Social History Patient Tobacco Use Status: Current everyday Tobacco user Tobacco use type: Cigarette Cigarette Packs Per Day: 0.5 Cigarettes Per Day: 10.0 Years Smoked: 30 Smoked in Last 30 Days: Yes Use of substances other than those prescribed or required for medical reasons: No Advance Directives: No Advance Directives Information Provided: No Meds Allergies Allergy/AdvReac Type Severity Reaction Status Date / Time Penicillins (PENICILLINS) Allergy Severe ANAPHYLAXIS Verified 10/08/25 11:29 Active Medications: Current Medications Acetaminophen (Acetaminophen 325 Mg Tablet) 650 mg PO Q6H PRN PRN Reason: Pain, Mild 1-3,fever,headache Calcium Carbonate (Calcium Carbonate 750 Mg Tab.Chew) 750 mg PO Q4H PRN PRN Reason: Heartburn Enoxaparin Sodium (Enoxaparin Sodium 40 Mg/0.4 Ml Syringe) 40 mg SUBCUT Q24H [facility] Vancomycin HCl (Vancomycin/Ns) 2,000 mg in 500 mls @ 250 mls/hr IV ONCE ONE Stop: 10/08/25 17:55 Cefepime HCl (Maxipime) 2 gm in 50 mls @ 100 mls/hr IV ONCE ONE Stop: 10/08/25 16:59 Last Admin: 10/08/25 16:33 Dose: 100 mls/hr Cefepime HCl 2 gm/ Sodium (Chloride) 50 mls @ 100 mls/hr IV Q12H [facility] Magnesium Hydroxide (Milk Of Magnesia 30 Ml Oral.Susp) 30 ml PO DAILY PRN PRN Reason: Constipation Melatonin (Melatonin 3 Mg Tablet) 6 mg PO BEDTIME PRN PRN Reason: Insomnia Nicotine (Nicotine 21 Mg Patch.Td24) 21 mg TRANSDERMA DAILY [facility] Nicotine Polacrilex (Nicotine Polacrilex Lozenge 2 Mg Lozenge) 2 mg BUCCAL Q2H PRN PRN Reason: Nicotine Cravings Oxycodone HCl (Oxycodone Hcl Immed Release 5 Mg Tablet) 5 mg PO Q6H PRN PRN Reason: Pain, Severe (Pain Scale 7-10) Pharmacy Consult (Consult Rx Vancomycin Dosing) 1 each MISCELLANE DAILY PRN PRN Reason: Consult order Sodium Chloride (0.9 % Sodium Chloride Flush 3 Ml Syringe) 3 ml IVFLUSH QSHIFT [facility] Home Medications ?Medication ?Instructions ?Recorded ?Confirmed ?Last Taken ?Type methadone 5 mg/5 mL oral solution 120 mg PO DAILY 09/22/22 05/08/23 05/07/23 History Physical Exam Vital Signs and Narrative: Vital Signs: Last Vital Signs Temp 97.8 F 10/08/25 15:49 Pulse 58 10/08/25 15:49 Resp 16 10/08/25 15:49 BP 121/76 10/08/25 15:49 Pulse Ox 96 10/08/25 15:49 O2 Del Method Room Air 10/08/25 15:49 BMI result Body Mass Index 27.1 Const: General: cooperative, comfortable, alert and awake Nutritional Appearance: average body habitus Orientation/consciousness: patient oriented x3 Resp: Effort & Inspection: normal respiratory effort, able to speak in complete sentences, no respiratory distress and no use of accessory muscles Cardio: Rate: regular rate GI: Palpation (GI): Soft to palpation Skin: Other: Neuro: General: patient oriented x3, moves all extremities and CN's II-XI intact bilaterally Results Labs 10/08/25 12:08 10/08/25 12:08 Labs: Laboratory Results - last 24 hr 10/08/25 10/08/25 12:07 12:08 MCV 91.5 MCH 31.2 MCHC 34.1 RDW 13.8 Plt Count 192 MPV 11.3 Immature Gran % (Auto) 0.3 Neut % (Auto) 82.1 H Lymph % (Auto) 11.2 L Dickens % (Auto) 5.9 Eos % (Auto) 0.3 Baso % (Auto) 0.2 Lymph # (Auto) 1.0 L Dickens # (Auto) 0.5 Eos # (Auto) 0.0 Baso # (Auto) 0.0 Abs Immat Gran (auto) 0.03 Absolute Neuts (auto) 7.5 Absolute Nucleated RBC 0.000 Nucleated RBC % (auto) 0.0 ESR 96 H Anion Gap 13 Estim Creat Clear Calc 93.3 Estimated GFR > 60 Random Glucose 129 H Lactic Acid 0.8 Calcium 9.8 Magnesium 2.3 Total Bilirubin 0.5 AST 24 ALT 11 Alkaline Phosphatase 97 C-Reactive Protein 3.98 H Total Protein 8.9 H Albumin 3.9 Assessment and Plan (1) Osteomyelitis: Status: Acute Plan This is a 55-year-old male with history of liver cirrhosis, HCV, HBV previous history of substance abuse on methadone who presents to the emergency department with chronic foot wound found to have concern for osteomyelitis Right foot cellulitis with suspicion for osteomyelitis Anaphylaxis to penicillin, treat with IV cefepime, vancomycin MRI to evaluate for osteomyelitis If MRI is positive we will need ID evaluation and long-term antibiotics blood cultures pending tobacco dependence Smoking cessation advised NRT h/o substance use will need to confirm methadone dose in the am dvt ppx - lovenox code status - full code Patient will likely require 2 midnight stay in the hospital for management of right foot cellulitis with concern for osteomyelitis requiring advanced imaging, IV antibiotics and specialist evaluation Quality Stroke Does the patient have a stroke diagnosis?: No VTE Prior VTE?: No VTE Risk Level:: Medical - moderate - high VTE Device Contraindication: N/A - Device Ordered VTE Drug Contraindication: N/A - Med Ordered
[2025-10-08] MEDS: vancomycin/NS 2,000 MG/500 ML PLAST..BAG 250 MG IV (17:18)
[2025-10-08] MEDS: Nicotine 21 MG PATCH.TD24 TRANSDERMA (17:18)
[2025-10-08] MEDS: oxyCODONE HCl Immed Release 5 MG TABLET PO ×2 (17:24→23:32)
--- NOTE | 2025-10-08 17:53 | PHA.MEDREC ---
Addendum entered by Lona Ha [facility] 10/08/25 17:57: Notified Anitha Navarro and PRUDENCIO Bergeron that a methadone verification form will be needed for his dose tomorrow morning. Original Note: Pharmacy Consult ? Medication Reconciliation Pharmacy has completed the medication reconciliation. Spoke to patient at bedside, noted the only thing he takes is methadone. He thinks it is 115mg or 116mg but wasn't sure, he gets from [facility] and received 6 take home bottles. Noted he did last have it today.
--- NOTE | 2025-10-08 18:30 | PC.NURSE ---
Pt taken to MRI
--- NOTE | 2025-10-08 18:30 | HO.NURTONUR ---
PER RN: Alert and oriented, ambulatory but has pain Admit: R/O osteomyletitis of right great toe, IV ABX PLan: MRI and ABX Reg diet Pills whole PRN oxy for pain IV: 20G in right hand PER MD: This is a 55-year-old male who presents to the emergency department with foot wound. Patient reports foot wound has been present for likely up to a year. He was seen in the emergency department on September 25 when it got substantially worse. 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 He was discharged home with oral antibiotics. His mother recently and he now returns to the emergency department for evaluation. In the emergency department x-ray concerning for possible osteomyelitis, inflammatory markers are elevated. Patient was treated with IV cefepime and vancomycin and the decision was made to admit him to the hospital for further management of cellulitis with concern for osteomyelitis.
--- NOTE | 2025-10-08 19:12 | PC.NURSE ---
Assumed pt care @ 1900. Pt a&ox4, no signs of distress Pt returned from MRI Pt ambulates with a steady gait Plan of care ongoing.
--- NOTE | 2025-10-08 19:39 | PC.NURSE ---
Pt ambulates to the restroom and back into room with a steady gait. Pt requested and hob lowered Plan of care ongoing.
[2025-10-08 19:46] VITALS: BP 133/78; PULSE 57; RESP 20; TEMP 36.9; O2SAT 95
[2025-10-08 20:44] VITALS: BP 141/87; PULSE 57; RESP 18; TEMP 36.4; O2SAT 100
[2025-10-08 20:46] VITALS: BMI 25.7
[2025-10-08] MEDS: 0.9 % Sodium Chloride Flush 3 ML SYRINGE IVFLUSH (21:20)
[2025-10-09 03:12] VITALS: BP 117/66; PULSE 51; RESP 18; TEMP 36.2; O2SAT 98
[2025-10-09] MEDS: cefEPime HCl/D5W 2 GM/50 ML PIGGYBACK IV ×2 (04:06→15:25)
[2025-10-09 06:01] LABS: Hematocrit 42.6 % (42.0-52.0); Hemoglobin 14.1 g/dl (14.0-18.0); Mean Corpuscular HGB Conc 33.1 g/dl (31.0-36.0); Mean Corpuscular Hemoglobin 30.7 pg (27.0-33.0); Mean Corpuscular Volume 92.8 fL (80.0-98.0); NRBC Abs Auto 0.000 X10*3/uL (0.0-0.012); NRBC Pct Auto 0.0 /100WBC (0.0-0.2); Platelet Count 174 X10*3/uL (160-400); Red Blood Count 4.59 X10*6/uL (4.60-5.80); White Blood Count 7.5 X10*3/uL (4.8-10.8)
[2025-10-09] MEDS: oxyCODONE HCl Immed Release 5 MG TABLET PO ×3 (06:10→19:32)
[2025-10-09 06:18] LABS: Anion Gap 13 (12-20); Blood Urea Nitrogen 20 mg/dL (9-16); Calcium 9.2 mg/dL (8.4-10.2); Carbon Dioxide 27 mmol/L (22-29); Chloride 102 mmol/L (96-108); Creatinine Clr Calc Pharmacy 98.0; Estimated Glomerular Filt Rate > 60; Potassium 4.3 mmol/L (3.3-5.1); Sodium 138 mmol/L (135-145)
[2025-10-09 07:32] VITALS: BP 122/66; RESP 16; TEMP 36.1; O2SAT 96
[2025-10-09] MEDS: 0.9 % Sodium Chloride Flush 3 ML SYRINGE IVFLUSH ×3 (08:20→19:08)
[2025-10-09] MEDS: Nicotine 21 MG PATCH.TD24 TRANSDERMA (08:22)
--- NOTE | 2025-10-09 08:22 | PM.CNGS ---
History of Present Illness Consult details Consult date: 10/09/25 <Ghislaine Juarez PA-C - Last Filed: 10/09/25 08:39> Reason for consult: other (right first toe osteomyelitis) <MAXINE Gates Last Filed: 10/09/25 08:39> Requesting physician: Jacoby Smith <MAXINE Gates Last Filed: 10/09/25 08:39> Narrative: 55 year old male with PMH significant for hepatitis C who presented to the ED with complaints of right foot swelling, redness and pain. He reports a wound on the bottom of his right first toe for about a year now. He first developed a blister of his toe about a year ago and it just never healed. He does not do much for wound care. He denies drainage of the area. At the beginning of this month he had swelling of his toe and he came to the ED and was prescribed abx. Admission and further work up was recommended but his mother had just passed and he left AMA. He presented again for worsening swelling and redness yesterday. He was admitted to the hospitalist service for concern for osteomyelitis. He had a right foot MRI which showed distal phalanx of the right 1st digit with abnormal bone marrow signal suggestive of osteomyelitis. General surgery was therefore consulted. He reports being very active. He is not a diabetic. He reports improvement in the swelling and redness since admission. <MAXINE Gates Last Filed: 10/09/25 08:39> Review of Systems Constitutional: Constitutional: Denies chills and Denies fever(s) <MAXINE Gates Last Filed: 10/09/25 08:39> ENT: Denies dizziness <MAXINE Gates Last Filed: 10/09/25 08:39> Cardiovascular: Cardiovascular: Denies chest pain and Denies dyspnea <MAXINE Gates Last Filed: 10/09/25 08:39> Respiratory: Respiratory: Denies dyspnea <MAXINE Gates Last Filed: 10/09/25 08:39> Gastrointestinal: Gastrointestinal: Denies nausea and Denies vomiting <Ghislaine Juarez PA-C Last Filed: 10/09/25 08:39> Integumentary/Breasts: Skin/Breast: Reports as per HPI <MAXINE Gates Last Filed: 10/09/25 08:39> Neurologic: Denies dizziness <MAXINE Gates Last Filed: 10/09/25 08:39> PMF Past Medical History Medical History: Medical History Nicotine dependence, cigarettes, uncomplicated Alcohol use disorder Smoking Hepatitis C IV drug user <Ghislaine Juarez PA-C Last Filed: 10/09/25 08:39> Family History Family History: Family History Maternal Uncle Cancer Paternal Uncle Cancer Maternal Uncle Cancer Maternal Uncle Cancer Father Arthritis Congenital polycystic lung Mother Diabetes <MAXINE Gates Last Filed: 10/09/25 08:39> Surgical History Surgical History: Surgical History History of facial surgery <MAXINE Gates Last Filed: 10/09/25 08:39> Social History Social History: Social History Household Members: Family Housing: House Do you presently have visiting nurse or other home services: No Patient Tobacco Use Status: Current everyday Tobacco user Tobacco use type: Cigarette Cigarette Packs Per Day: 1 Cigarettes Per Day: 20.0 Years Smoked: 30 <MAXINE Gates Last Filed: 10/09/25 08:39> Meds Allergies/Adverse reactions: Allergies Allergy/AdvReac Type Severity Reaction Status Date / Time Penicillins (PENICILLINS) Allergy Severe ANAPHYLAXIS Verified 10/08/25 11:29 <MAXINE Gates Last Filed: 10/09/25 08:39> Active Medications: Current Medications Acetaminophen (Acetaminophen 325 Mg Tablet) 650 mg PO Q6H PRN PRN Reason: Pain, Mild 1-3,fever,headache Last Admin: 10/08/25 21:19 Dose: 650 mg Calcium Carbonate (Calcium Carbonate 750 Mg Tab.Chew) 750 mg PO Q4H PRN PRN Reason: Heartburn Enoxaparin Sodium (Enoxaparin Sodium 40 Mg/0.4 Ml Syringe) 40 mg SUBCUT Q24H [facility] Last Admin: 10/08/25 17:21 Dose: 40 mg Cefepime HCl (Maxipime) 2 gm in 50 mls @ 100 mls/hr IV Q12H [facility] Last Infusion: 10/09/25 04:40 Dose: Infused Vancomycin HCl 1,000 mg/ (Sodium Chloride) 270 mls @ 270 mls/hr IV Q12H [facility] Last Infusion: 10/09/25 07:12 Dose: Infused Magnesium Hydroxide (Milk Of Magnesia 30 Ml Oral.Susp) 30 ml PO DAILY PRN PRN Reason: Constipation Melatonin (Melatonin 3 Mg Tablet) 6 mg PO BEDTIME PRN PRN Reason: Insomnia Last Admin: 10/08/25 23:32 Dose: 6 mg Nicotine (Nicotine 21 Mg Patch.Td24) 21 mg TRANSDERMA DAILY [facility] Last Admin: 10/08/25 17:18 Dose: 21 mg Nicotine Polacrilex (Nicotine Polacrilex Lozenge 2 Mg Lozenge) 2 mg BUCCAL Q2H PRN PRN Reason: Nicotine Cravings Oxycodone HCl (Oxycodone Hcl Immed Release 5 Mg Tablet) 5 mg PO Q6H PRN PRN Reason: Pain, Severe (Pain Scale 7-10) Last Admin: 10/09/25 06:10 Dose: 5 mg Pharmacy Consult (Consult Rx Vancomycin Dosing) 1 each MISCELLANE DAILY PRN PRN Reason: Consult order Sodium Chloride (0.9 % Sodium Chloride Flush 3 Ml Syringe) 3 ml IVFLUSH QSHIFT [facility] Last Admin: 10/09/25 08:20 Dose: 3 ml <Ghislaine Juarez PA-C - Last Filed: 10/09/25 08:39> Home medications: Home Medications ?Medication ?Instructions ?Recorded ?Confirmed ?Last Taken ?Type methadone 5 mg/5 mL oral solution 120 mg PO DAILY 09/22/22 05/08/23 05/07/23 History <Ghislaine Juarez PA-C - Last Filed: 10/09/25 08:39> Physical Exam Vital Signs: Vital Signs: Last Vital Signs Temp 97.0 F 10/09/25 07:32 Pulse 51 10/09/25 03:12 Resp 16 10/09/25 07:32 BP 122/66 10/09/25 07:32 Pulse Ox 96 10/09/25 07:32 O2 Del Method Room Air 10/09/25 07:32 BMI result Body Mass Index 25.7 <Ghislaine RyanMEGAN velazquezDominique Kong Last Filed: 10/09/25 08:39> Const: General: comfortable, no acute distress and alert <Ghislaine MabryTHOMAS quintanaDaphney Kong Last Filed: 10/09/25 08:39> Orientation/consciousness: patient oriented x3 <Ghislaine MabryTHOMAS quintanaDaphney Kong Last Filed: 10/09/25 08:39> Resp: Effort & Inspection: normal respiratory effort <Ghislaine MabryTHOMAS quintanaDaphney Kong Last Filed: 10/09/25 08:39> Skin: Other: warm and dry <Ghislaine Mabrymariano MAXINE Kong Last Filed: 10/09/25 08:39> Neuro: General: patient oriented x3 and moves all extremities <Ghislaine MabryTHOMAS quintanaDaphney Kong Last Filed: 10/09/25 08:39> Extrem: Other: right first toe with open wound on plantar aspect measuring 1.8 x 1cm with slough and exudate of wound base without necrosis, significant surrounding callus, mild edema and erythema of foot proximally ; good palpable DP pulse <Ghislaine Ryancaroline MAXINE Kong Last Filed: 10/09/25 08:39> Results Labs Result diagrams: 10/09/25 05:52 10/09/25 05:52 <Ghislaine AnnTHOMAS quintanaDaphney Kong Last Filed: 10/09/25 08:39> Labs: Abnormal lab results 10/08/25 10/09/25 Range/Units 12:08 05:52 RBC 4.59 L (4.60-5.80) X10*6/uL Neut % (Auto) 82.1 H (45-73) % Lymph % (Auto) 11.2 L (20-40) % Lymph # (Auto) 1.0 L (1.2-4.9) X10*3/uL ESR 96 H (1-20) MM/HR BUN 17 H 20 H (9-16) mg/dL Random Glucose 129 H (60-115) mg/dL C-Reactive Protein 3.98 H (< or = 0.50) mg/dL Total Protein 8.9 H (6.5-8.0) g/dL Short CBC 10/08/25 10/09/25 Range/Units 12:08 05:52 WBC 9.2 7.5 (4.8-10.8) X10*3/uL Hgb 15.4 14.1 (14.0-18.0) g/dl Hct 45.1 42.6 (42.0-52.0) % Plt Count 192 174 (160-400) X10*3/uL BMP 10/08/25 10/09/25 12:08 05:52 Sodium 136 138 Potassium 4.4 4.3 Chloride 100 102 Carbon Dioxide 27 27 BUN 17 H 20 H Creatinine 1.04 0.99 Calcium 9.8 9.2 D Liver Function 10/08/25 Range/Units 12:08 Total Bilirubin 0.5 (0.0-1.0) mg/dL AST 24 (5-37) U/L ALT 11 (0-40) U/L Alkaline Phosphatase 97 (39-117) U/L Albumin 3.9 (3.5-5.0) g/dL All other labs normal. <Ghislaine Juarez PA-C - Last Filed: 10/09/25 08:39> Imaging Additional studies: MRI and labs reviewed <Ghislaine Juarez PA-C - Last Filed: 10/09/25 08:39> Assessment and Plan (1) Osteomyelitis: Status: Acute <Ghislaine Juarez PA-C - Last Filed: 10/09/25 08:39> He has had this ulcer on the right big toe towards the plantar area for almost a year now This measures about 2 x 1.8 cm He has thick callus surrounding the area as well His imaging studies including MRI suggest osteomyelitis He has good pulses distally He is not a diabetic He wants to avoid any amputation May benefit from long-term IV antibiotics I explained to him the importance of good wound care He should also be seen by the Wound Service I have seen and examined him with THOMAS Juarez <Yovanny Dao MD - Last Filed: 10/09/25 09:09> 55 year old male with PMH significant for hepatitis C and chronic right first toe wound x 1 year presenting with acute worsening of swelling and redness. He was admitted to the hospitalist service for further treatment and work up. MRI suggestive of osteomyelitis of the distal phalanx of the right first digit. He would like to try nonoperative measures and attempt to avoid amputation of the right first toe. He has good palpable pulses. Recommend ID consult and wound care consult, wound care center referral upon discharge. Discussed he will need good wound care to help heal the wound and retirement abx but he can likely avoid amputation. He is comfortable with this plan. Discussed with hospitalist service. <Ghislaine Juarez PA-C - Last Filed: 10/09/25 08:39> Procedures Date of Service Date of Service: 10/09/25 <Ghislaine Juarez PA-C - Last Filed: 10/09/25 08:39> 10/09/25 <Yovanny Dao MD - Last Filed: 10/09/25 09:09>
--- NOTE | 2025-10-09 10:56 | MHC.CM.PN ---
A Financial services consult is in progress.
--- NOTE | 2025-10-09 10:59 | P.PNIM_ITS ---
Subjective Subjective Date of Service: 10/09/25 Interval History: No new complaints overall Patient has significant financial difficulties and constraints Currently he is self-pay General surgery has reviewed the patient, leaving no need for surgical intervention at this time Infectious diseases also been consulted Will likely require PICC line Review of Systems Review of Systems: Yes all other systems are reviewed and are negative Physical Exam 2 Exam: Exam: General: A&O x3, oriented to time place person and situation, comfortable, no pain Cardiac: S1, S2 auscultated with no S3/4, no MRG. Well perfused. Respiratory: Normal breath sounds auscultated throughout all lung zones, without wheezing, rales. Normal rate. GI/ : No abdominal pain on palpation, no masses or distentions. MSK: Normal ambulation without pain at bony prominences or musculature Lower extremities: Right hallux ulceration noted on the plantar aspect of the right foot; no discharge. Neurological: Normal neurological examination on overview, without obvious CN II-XII abnormalities. Vital Signs: Vital Signs: Last Vital Signs Temp 97.0 F 10/09/25 07:32 Pulse 51 10/09/25 03:12 Resp 16 10/09/25 07:32 BP 122/66 10/09/25 07:32 Pulse Ox 96 10/09/25 07:32 O2 Del Method Room Air 10/09/25 07:32 BMI result Body Mass Index 25.7 Objective Data Active Medications Acetaminophen (Acetaminophen 325 Mg Tablet) 650 mg PO Q6H PRN PRN Reason: Pain, Mild 1-3,fever,headache Last Admin: 10/08/25 21:19 Dose: 650 mg Documented By: DENISE Calcium Carbonate (Calcium Carbonate 750 Mg Tab.Chew) 750 mg PO Q4H PRN PRN Reason: Heartburn Enoxaparin Sodium (Enoxaparin Sodium 40 Mg/0.4 Ml Syringe) 40 mg SUBCUT Q24H [facility] Last Admin: 10/08/25 17:21 Dose: 40 mg Documented By: EMILIA Cefepime HCl (Maxipime) 2 gm in 50 mls @ 100 mls/hr IV Q12H [facility] Last Infusion: 10/09/25 04:40 Dose: Infused Documented By: DENISE Vancomycin HCl 1,000 mg/ (Sodium Chloride) 270 mls @ 270 mls/hr IV Q12H [facility] Last Infusion: 10/09/25 07:12 Dose: Infused Documented By: ESME Magnesium Hydroxide (Milk Of Magnesia 30 Ml Oral.Susp) 30 ml PO DAILY PRN PRN Reason: Constipation Melatonin (Melatonin 3 Mg Tablet) 6 mg PO BEDTIME PRN PRN Reason: Insomnia Last Admin: 10/08/25 23:32 Dose: 6 mg Documented By: DENISE Nicotine (Nicotine 21 Mg Patch.Td24) 21 mg TRANSDERMA DAILY [facility] Last Admin: 10/09/25 08:22 Dose: 21 mg Documented By: ESME Nicotine Polacrilex (Nicotine Polacrilex Lozenge 2 Mg Lozenge) 2 mg BUCCAL Q2H PRN PRN Reason: Nicotine Cravings Oxycodone HCl (Oxycodone Hcl Immed Release 5 Mg Tablet) 5 mg PO Q6H PRN PRN Reason: Pain, Severe (Pain Scale 7-10) Last Admin: 10/09/25 06:10 Dose: 5 mg Documented By: DENISE Pharmacy Consult (Consult Rx Vancomycin Dosing) 1 each MISCELLANE DAILY PRN PRN Reason: Consult order Sodium Chloride (0.9 % Sodium Chloride Flush 3 Ml Syringe) 3 ml IVFLUSH QSHIFT [facility] Last Admin: 10/09/25 08:20 Dose: 3 ml Documented By: ESME Labs 10/09/25 05:52 10/09/25 05:52 Labs: Laboratory Results - last 24 hr 10/08/25 10/08/25 10/09/25 12:07 12:08 05:52 MCV 91.5 92.8 MCH 31.2 30.7 MCHC 34.1 33.1 RDW 13.8 14.1 Plt Count 192 174 MPV 11.3 11.1 Immature Gran % (Auto) 0.3 Neut % (Auto) 82.1 H Lymph % (Auto) 11.2 L [place] % (Auto) 5.9 Eos % (Auto) 0.3 Baso % (Auto) 0.2 Lymph # (Auto) 1.0 L [place] # (Auto) 0.5 Eos # (Auto) 0.0 Baso # (Auto) 0.0 Abs Immat Gran (auto) 0.03 Absolute Neuts (auto) 7.5 Absolute Nucleated RBC 0.000 0.000 Nucleated RBC % (auto) 0.0 0.0 ESR 96 H Anion Gap 13 13 Estim Creat Clear Calc 93.3 98.0 Estimated GFR > 60 > 60 Random Glucose 129 H 111 Lactic Acid 0.8 Calcium 9.8 9.2 D Magnesium 2.3 Total Bilirubin 0.5 AST 24 ALT 11 Alkaline Phosphatase 97 C-Reactive Protein 3.98 H Total Protein 8.9 H Albumin 3.9 Assessment and Plan (1) Alcohol use disorder: Status: Acute (2) Hepatitis C: Status: Acute (3) Hepatitis B core antibody positive: Status: Acute (4) Osteomyelitis: Status: Acute (5) Skin lesion: Status: Acute (6) Nicotine dependence, cigarettes, uncomplicated: Status: Acute Plan 55-year-old male with history of liver cirrhosis, HCV, HBV previous history of substance abuse on methadone who presents to the emergency department with chronic foot wound admitted with acute right hallux osteomyelitis. Right foot cellulitis Right hallux acute osteomyelitis Anaphylaxis to penicillin, treat with IV cefepime, vancomycin MRI to evaluate for osteomyelitis Infectious diseases consulted: Long-term antibiotics General surgery consulted, no role for surgical intervention at this time Blood cultures pending Tobacco dependence Smoking cessation advised NRT H/o substance use will need to confirm methadone dose in the am dvt ppx - lovenox code status - full code Total time managing care of this patient today: 35 minutes. Quality Stroke Does the patient have a stroke diagnosis?: No VTE Prior VTE?: No VTE Risk Level:: Medical - moderate - high VTE Device Contraindication: N/A - Device Ordered VTE Drug Contraindication: N/A - Med Ordered
--- NOTE | 2025-10-09 11:50 | HE.PHANOTE ---
Methadone Pt last received 116mg 10/07/25 with 16 take home bottles from [facility] [phone] per Brooke at facility.
--- NOTE | 2025-10-09 12:27 | HO.WOUND ---
Wound Consult: Initial 55 yr old male admitted to [facility] on 10/08/25- See progress notes and H&P for detailed history. Wound consult placed for right great toe. Patient agreeable to assessment and photo documentation. Patient reports about 1 year history of wound - started as a blister. reports that he would trim callus and try to keep area clean. patient reports taking care of his mother recently and was unable to seek proper care until now. he reports no history of diabetes but reports some loss of sensation to feet. he has strong palpable pedal pulses. Seen by general surgery for osteomyelitis, however is declining surgical options at this time. Discussed follow up at outpatient wound center upon discharge, patient is agreeable - referral in place. Discussed increased protein needs for wound healing, patient in agreement. Right dorsal foot Right medial great toe Right plantar great toe Etiology: chronic wound likely component of neuropathy Measurements: 1.5cm x 1.5cm x 0.5cm - approximately 0.3cm undermining circumferentially Wound Bed: moist yellow adherent tissue - medial foot with dry crusted drainage Drainage / Odor: scant serous- no odor Edges: ? callused [place] wound: ? No Induration, Fluctuance or Warmth noted Pain: yes Goals of Treatment: ? Recommend medihoney to promote an optimal moist wound healing environment including reducing edema, lowering wound pH, debriding slough and mild antimicrobial effect, cover with durafiber ag (silver alginate) for drainage absorption. Recommendations: right great toe: cleanse with saline, apply thin layer of medihoney to wound beds, cover with durafiber ag ( silver alginate), wrap with rolled gauze, change every other day and PRN. Re-consult wound care Nurse for wound deterioration or wound changes.
[2025-10-09] MEDS: methADONE HCl 20 MG/2 ML ORAL.CONC 116 MG PO (13:19)
--- NOTE | 2025-10-09 13:28 | P.CNID_ITS ---
History of Present Illness Data of Consult Service Date: 10/09/25 Requesting physician: Jacoby Smith Primary Care Provider: None Physician HPI Reason for consult: right foot OM He presents with worsening pain right great toe and swelling. He reports wound for a year after injury. He has no fever or chills. He was going to be admitted last week but went AMA due to mothers reported. He had active Hepatitis C last known 2022 and was HIV negative. He also was Hepatitis B core and antibody positive. He is angry and cursing and wants to get his Methadone out of his car Review of Systems 2 Review of Systems: Yes all other systems are reviewed and are negative [facility] Past Medical History Medical History Nicotine dependence, cigarettes, uncomplicated Alcohol use disorder Smoking Hepatitis C IV drug user Family History Family History Maternal Uncle Cancer Paternal Uncle Cancer Maternal Uncle Cancer Maternal Uncle Cancer Father Arthritis Congenital polycystic lung Mother Diabetes Family history: reviewed and not pertinent Surgical History Surgical History History of facial surgery Social History Social History Household Members: Family Housing: House Do you presently have visiting nurse or other home services: No Patient Tobacco Use Status: Current everyday Tobacco user Tobacco use type: Cigarette Cigarette Packs Per Day: 1 Cigarettes Per Day: 20.0 Years Smoked: 30 service: No Meds Allergies Allergy/AdvReac Type Severity Reaction Status Date / Time Penicillins (PENICILLINS) Allergy Severe ANAPHYLAXIS Verified 10/08/25 11:29 Active Medications: Current Medications Acetaminophen (Acetaminophen 325 Mg Tablet) 650 mg PO Q6H PRN PRN Reason: Pain, Mild 1-3,fever,headache Last Admin: 10/09/25 13:23 Dose: 650 mg Calcium Carbonate (Calcium Carbonate 750 Mg Tab.Chew) 750 mg PO Q4H PRN PRN Reason: Heartburn Enoxaparin Sodium (Enoxaparin Sodium 40 Mg/0.4 Ml Syringe) 40 mg SUBCUT Q24H [facility] Last Admin: 10/08/25 17:21 Dose: 40 mg Cefepime HCl (Maxipime) 2 gm in 50 mls @ 100 mls/hr IV Q12H [facility] Last Infusion: 10/09/25 04:40 Dose: Infused Vancomycin HCl 1,000 mg/ (Sodium Chloride) 270 mls @ 270 mls/hr IV Q12H [facility] Last Infusion: 10/09/25 07:12 Dose: Infused Magnesium Hydroxide (Milk Of Magnesia 30 Ml Oral.Susp) 30 ml PO DAILY PRN PRN Reason: Constipation Melatonin (Melatonin 3 Mg Tablet) 6 mg PO BEDTIME PRN PRN Reason: Insomnia Last Admin: 10/08/25 23:32 Dose: 6 mg Methadone HCl (Methadone Hcl 20 Mg/2 Ml Oral.Conc) 116 mg PO DAILY@0800 [facility] Last Admin: 10/09/25 13:19 Dose: 116 mg Nicotine (Nicotine 21 Mg Patch.Td24) 21 mg TRANSDERMA DAILY [facility] Last Admin: 10/09/25 08:22 Dose: 21 mg Nicotine Polacrilex (Nicotine Polacrilex Lozenge 2 Mg Lozenge) 2 mg BUCCAL Q2H PRN PRN Reason: Nicotine Cravings Oxycodone HCl (Oxycodone Hcl Immed Release 5 Mg Tablet) 5 mg PO Q6H PRN PRN Reason: Pain, Severe (Pain Scale 7-10) Last Admin: 10/09/25 13:24 Dose: 5 mg Pharmacy Consult (Consult Rx Vancomycin Dosing) 1 each MISCELLANE DAILY PRN PRN Reason: Consult order Sodium Chloride (0.9 % Sodium Chloride Flush 3 Ml Syringe) 3 ml IVFLUSH QSHIFT [facility] Last Admin: 10/09/25 08:20 Dose: 3 ml Home Medications ?Medication ?Instructions ?Recorded ?Confirmed ?Last Taken ?Type methadone 5 mg/5 mL oral solution 116 mg PO DAILY 08/2710/09/25 10/07/25 History Physical Exam 2 Vital Signs: Vital Signs: Last Vital Signs Temp 97.0 F 10/09/25 07:32 Pulse 51 10/09/25 03:12 Resp 16 10/09/25 07:32 BP 122/66 10/09/25 07:32 Pulse Ox 96 10/09/25 07:32 O2 Del Method Room Air 10/09/25 07:32 BMI result Body Mass Index 25.7 Const: General: cooperative HEENT: Head: Yes normal to inspection Face and sinus: Yes normal facial exam Mouth: Normal oral and palatal mucosa present Teeth and gingiva: d entition normal Eyes: General: appearance normal, both eyes and all related structures P upils: Equal, round and reactive pupils present Resp: Effort & Inspection: normal respiratory effort Cardio: Rate: regular rate Rhythm: regular rhythm GI: Palpation (GI): Soft to palpation and nontender : General: Yes no CVA tenderness Back/Spine/Pelvis: Back: no CVA tenderness Skin: General skin exam: no rashes or lesions noted Neuro: General: moves all extremities Cranial nerves: Yes Equal, round and reactive pupils present Extrem: Other: right great toe swollen and wrapped General: Yes normal to inspection Psych: Appearance: grossly normal Results Labs 10/09/25 05:52 10/09/25 05:52 Labs: Short CBC 10/09/25 Range/Units 05:52 WBC 7.5 (4.8-10.8) X10*3/uL Hgb 14.1 (14.0-18.0) g/dl Hct 42.6 (42.0-52.0) % Plt Count 174 (160-400) X10*3/uL BMP 10/09/25 05:52 Sodium 138 Potassium 4.3 Chloride 102 Carbon Dioxide 27 BUN 20 H Creatinine 0.99 Calcium 9.2 D Assessment and Plan (1) IV drug user: Status: Acute (2) Alcohol use disorder: Status: Acute (3) Hepatitis C: Status: Acute (4) Hepatitis B core antibody positive: Status: Acute (5) Osteomyelitis: Status: Acute Plan Ideally with OM he should receive IV Vancomycin or Daptomycin for six weeks or whatever culture indicates and this is palliative not curative. Check weekly creatinine and Vancomycin level. He would have to go to rehab however and takes Methadone so may likely refuse. If refuses po Doxycycline 100 mg bid for six weeks and if doesnt work then consider amputation. Recheck HIV test.
--- NOTE | 2025-10-09 13:37 | MHC.CM.PN ---
pt lives with brother he is on methadone financial counselors have seen pt pt has a ride home dc plan tbd ?iv antibiotics
[2025-10-09 15:27] VITALS: BP 151/69; PULSE 51; RESP 18; TEMP 36.1; O2SAT 97
--- NOTE | 2025-10-09 17:03 | HE.PHANOTE ---
Re Jose R Barahona back at 13.6, projected steady state trough is 15.4, will continue same dose and check again on 10/11 @1600.
[2025-10-09] MEDS: Milk of Magnesia 30 ML ORAL.SUSP PO (19:31)
[2025-10-09 19:35] VITALS: BP 141/77; PULSE 50; RESP 18; TEMP 36.4; O2SAT 97
[2025-10-10 03:56] VITALS: BP 129/76; PULSE 50; RESP 18; TEMP 37.4; O2SAT 97
[2025-10-10] MEDS: cefEPime HCl/D5W 2 GM/50 ML PIGGYBACK IV ×2 (04:00→16:33)
[2025-10-10] MEDS: oxyCODONE HCl Immed Release 5 MG TABLET PO (04:04)
[2025-10-10 04:23] LABS: HIV Num 1 0.06 S/CO (0.00-0.99)
[2025-10-10 07:15] LABS: Creatinine Clr Calc Pharmacy 100.0; Estimated Glomerular Filt Rate > 60
[2025-10-10 07:51] VITALS: BP 141/78; RESP 16; TEMP 36.5; O2SAT 98
[2025-10-10] MEDS: Nicotine 21 MG PATCH.TD24 TRANSDERMA (08:05)
[2025-10-10] MEDS: 0.9 % Sodium Chloride Flush 3 ML SYRINGE IVFLUSH ×2 (08:06→16:33)
[2025-10-10] MEDS: methADONE HCl 20 MG/2 ML ORAL.CONC 116 MG PO (08:09)
[2025-10-10 08:14] VITALS: PULSE 52
--- NOTE | 2025-10-10 10:42 | HO.PM.IMPN ---
Subjective Subjective Date of Service: 10/10/25 Interval History: Patient seen examined at bedside this morning, patient with right foot osteomyelitis, showed that has improved, continues on IV antibiotics. Review of Systems Review of Systems: Yes all other systems are reviewed and are negative Physical Exam Exam: Exam: General: A&O x3, oriented to time place person and situation, comfortable, no pain Cardiac: S1, S2 auscultated with no S3/4, no MRG. Well perfused. Respiratory: Normal breath sounds auscultated throughout all lung zones, without wheezing, rales. Normal rate. GI/ : No abdominal pain on palpation, no masses or distentions. MSK: Normal ambulation without pain at bony prominences or musculature Lower extremities: Right hallux ulceration noted on the plantar aspect of the right foot; no discharge. Neurological: Normal neurological examination on overview, without obvious CN II-XII abnormalities. Vital Signs: Vital Signs: Last Vital Signs Temp 97.7 F 10/10/25 07:51 Pulse 52 10/10/25 08:14 Resp 16 10/10/25 07:51 BP 141/78 H 10/10/25 07:51 Pulse Ox 98 10/10/25 07:51 O2 Del Method Room Air 10/10/25 07:51 BMI result Body Mass Index 25.7 Objective Data Active Medications Acetaminophen (Acetaminophen 325 Mg Tablet) 650 mg PO Q6H PRN PRN Reason: Pain, Mild 1-3,fever,headache Last Admin: 10/10/25 04:04 Dose: 650 mg Documented By: DENISE Calcium Carbonate (Calcium Carbonate 750 Mg Tab.Chew) 750 mg PO Q4H PRN PRN Reason: Heartburn Enoxaparin Sodium (Enoxaparin Sodium 40 Mg/0.4 Ml Syringe) 40 mg SUBCUT Q24H [facility] Last Admin: 10/09/25 18:05 Dose: 40 mg Documented By: ESME Cefepime HCl (Maxipime) 2 gm in 50 mls @ 100 mls/hr IV Q12H [facility] Last Infusion: 10/10/25 04:38 Dose: Infused Documented By: DENISE Vancomycin HCl 1,000 mg/ (Sodium Chloride) 270 mls @ 270 mls/hr IV Q12H [facility] Last Infusion: 10/10/25 06:58 Dose: Infused Documented By: ESME Magnesium Hydroxide (Milk Of Magnesia 30 Ml Oral.Susp) 30 ml PO DAILY PRN PRN Reason: Constipation Last Admin: 10/09/25 19:31 Dose: 30 ml Documented By: DENISE Melatonin (Melatonin 3 Mg Tablet) 6 mg PO BEDTIME PRN PRN Reason: Insomnia Last Admin: 10/10/25 00:08 Dose: 6 mg Documented By: DENISE Methadone HCl (Methadone Hcl 20 Mg/2 Ml Oral.Conc) 116 mg PO DAILY@0800 [facility] Last Admin: 10/10/25 08:09 Dose: 116 mg Documented By: ESME Co-signed By: STEPH Nicotine (Nicotine 21 Mg Patch.Td24) 21 mg TRANSDERMA DAILY [facility] Last Admin: 10/10/25 08:05 Dose: 21 mg Documented By: ESME Nicotine Polacrilex (Nicotine Polacrilex Lozenge 2 Mg Lozenge) 2 mg BUCCAL Q2H PRN PRN Reason: Nicotine Cravings Oxycodone HCl (Oxycodone Hcl Immed Release 5 Mg Tablet) 5 mg PO Q6H PRN PRN Reason: Pain, Severe (Pain Scale 7-10) Last Admin: 10/10/25 04:04 Dose: 5 mg Documented By: DENISE Pharmacy Consult (Consult Rx Vancomycin Dosing) 1 each MISCELLANE DAILY PRN PRN Reason: Consult order Sodium Chloride (0.9 % Sodium Chloride Flush 3 Ml Syringe) 3 ml IVFLUSH QSHIFT [facility] Last Admin: 10/10/25 08:06 Dose: 3 ml Documented By: ESME Labs 10/09/25 05:52 10/10/25 06:12 Labs: Laboratory Results - last 24 hr 10/09/25 10/09/25 10/10/25 13:56 16:08 06:12 Estim Creat Clear Calc 100.0 Estimated GFR > 60 Random Vancomycin 13.6 L HIV 1&2 Ab/P24 Ag 4thGn Nonreactive Microbiology Microbiology Results: Microbiology 10/08/25 14:38 Blood Culture - Preliminary Blood - Venous No growth after 24 hours. 10/08/25 12:08 Blood Culture - Preliminary Blood - Venous No growth after 24 hours. Assessment and Plan (1) Alcohol use disorder: Status: Acute (2) Hepatitis C: Status: Acute (3) Hepatitis B core antibody positive: Status: Acute (4) Osteomyelitis: Status: Acute (5) Skin lesion: Status: Acute (6) Nicotine dependence, cigarettes, uncomplicated: Status: Acute Plan 55-year-old male with history of liver cirrhosis, HCV, HBV previous history of substance abuse on methadone who presents to the emergency department with chronic foot wound admitted with acute right hallux osteomyelitis. Right foot cellulitis Right hallux acute osteomyelitis Anaphylaxis to penicillin, continue with IV cefepime, vancomycin MRI with Distal phalanx of the 1st digit shows abnormal bone marrow signal; osteomyelitis. Infectious diseases consulted: Long-term antibiotics General surgery consulted, no role for surgical intervention at this time Blood cultures pending Tobacco dependence Smoking cessation advised NRT H/o substance use continue home dose of methadone, mentions he has been clean for over 15 years. dvt ppx - lovenox code status - full code Total time managing care of this patient today: 35 minutes. Quality Stroke Does the patient have a stroke diagnosis?: No VTE Prior VTE?: No VTE Risk Level:: Medical - moderate - high VTE Device Contraindication: N/A - Device Ordered VTE Drug Contraindication: N/A - Med Ordered
--- NOTE | 2025-10-10 15:08 | HO.ADDICT_ITS ---
History of Present Illness Date of Service: 10/10/25 Chief Complaint: Foot wound, possible osteo Reason for Consult: [place] eval --will need IV abx Sources of Information: patient interviewed and chart reviewed HPI Narrative: Patient is a 55 year old male medically admitted with osteomyelitis necessitating continuous churn buttermaker IV abx Consult requested to assess risk for at home IV abx vs STR Chart review shows patient currently prescribed methadone 116mg QD via [facility] [address] [facility] Patient seen in room 353. He is pleasant on approach, until t/w explained reason for visit He then shared that he was not going anywhere for IV abx unless it was home He stated that he felt judged for his history of substance use He stated that he had not used any substances in years and states he used IV very briefly a long, long time ago . T/W allowed patient to share frustrations and then inquired if he would be willing to allow clinical team to collaborate with [facility] provider around this, and patient declined stating, this is none of their business they don't need to be a part of this . Patient then stated he was done with this and asked that I notify provider that he wanted to be discharged home Medical Evaluation Reviewed: Yes Review of Systems Review of Systems Yes Other (deferred) Diagnostics Vital Signs (24Hr): Vital Signs - 24 hr 10/09/25 15:27 10/09/25 19:35 10/10/25 03:56 Temperature 96.9 F 97.5 F 99.3 F Pulse Rate 51 50 50 Respiratory Rate 18 18 18 Blood Pressure 151/69 H 141/77 H 129/76 Pulse Oximetry 97 97 97 Oxygen Delivery Method Room Air Room Air Room Air 10/10/25 07:51 10/10/25 08:14 Temperature 97.7 F Pulse Rate 52 Respiratory Rate 16 Blood Pressure 141/78 H Pulse Oximetry 98 Oxygen Delivery Method Room Air BMI result Body Mass Index 25.7 Labs 10/09/25 05:52 10/10/25 06:12 Labs: Laboratory Results - last 48 hr 10/09/25 10/09/25 10/09/25 05:52 13:56 16:08 WBC 7.5 RBC 4.59 L Hgb 14.1 Hct 42.6 MCV 92.8 MCH 30.7 MCHC 33.1 RDW 14.1 Plt Count 174 MPV 11.1 Absolute Nucleated RBC 0.000 Nucleated RBC % (auto) 0.0 Sodium 138 Potassium 4.3 Chloride 102 Carbon Dioxide 27 Anion Gap 13 BUN 20 H Creatinine 0.99 Estim Creat Clear Calc 98.0 Estimated GFR > 60 Random Glucose 111 Calcium 9.2 D Random Vancomycin 13.6 L HIV 1&2 Ab/P24 Ag 4thGn Nonreactive 10/10/25 06:12 WBC RBC Hgb Hct MCV MCH MCHC RDW Plt Count MPV Absolute Nucleated RBC Nucleated RBC % (auto) Sodium Potassium Chloride Carbon Dioxide Anion Gap BUN Creatinine 0.97 Estim Creat Clear Calc 100.0 Estimated GFR > 60 Random Glucose Calcium Random Vancomycin HIV 1&2 Ab/P24 Ag 4thGn Mental Status Exam Mental Status Exam Level of Consciousness: Awake and Alert Patient Behavior: Guarded Mood Description: Angry Affect Description: Angry Medications Medications Current Medications Acetaminophen (Acetaminophen 325 Mg Tablet) 650 mg PO Q6H PRN PRN Reason: Pain, Mild 1-3,fever,headache Last Admin: 10/10/25 04:04 Dose: 650 mg Calcium Carbonate (Calcium Carbonate 750 Mg Tab.Chew) 750 mg PO Q4H PRN PRN Reason: Heartburn Enoxaparin Sodium (Enoxaparin Sodium 40 Mg/0.4 Ml Syringe) 40 mg SUBCUT Q24H [facility] Last Admin: 10/09/25 18:05 Dose: 40 mg Cefepime HCl (Maxipime) 2 gm in 50 mls @ 100 mls/hr IV Q12H [facility] Last Infusion: 10/10/25 04:38 Dose: Infused Vancomycin HCl 1,000 mg/ (Sodium Chloride) 270 mls @ 270 mls/hr IV Q12H [facility] Last Infusion: 10/10/25 06:58 Dose: Infused Magnesium Hydroxide (Milk Of Magnesia 30 Ml Oral.Susp) 30 ml PO DAILY PRN PRN Reason: Constipation Last Admin: 10/09/25 19:31 Dose: 30 ml Melatonin (Melatonin 3 Mg Tablet) 6 mg PO BEDTIME PRN PRN Reason: Insomnia Last Admin: 10/10/25 00:08 Dose: 6 mg Methadone HCl (Methadone Hcl 20 Mg/2 Ml Oral.Conc) 116 mg PO DAILY@0800 [facility] Last Admin: 10/10/25 08:09 Dose: 116 mg Nicotine (Nicotine 21 Mg Patch.Td24) 21 mg TRANSDERMA DAILY [facility] Last Admin: 10/10/25 08:05 Dose: 21 mg Nicotine Polacrilex (Nicotine Polacrilex Lozenge 2 Mg Lozenge) 2 mg BUCCAL Q2H PRN PRN Reason: Nicotine Cravings Oxycodone HCl (Oxycodone Hcl Immed Release 5 Mg Tablet) 5 mg PO Q6H PRN PRN Reason: Pain, Severe (Pain Scale 7-10) Last Admin: 10/10/25 04:04 Dose: 5 mg Pharmacy Consult (Consult Rx Vancomycin Dosing) 1 each MISCELLANE DAILY PRN PRN Reason: Consult order Sodium Chloride (0.9 % Sodium Chloride Flush 3 Ml Syringe) 3 ml IVFLUSH QSHIFT [facility] Last Admin: 10/10/25 08:06 Dose: 3 ml Allergies Allergies Allergy/AdvReac Type Severity Reaction Status Date / Time Penicillins (PENICILLINS) Allergy Severe ANAPHYLAXIS Verified 10/08/25 11:29 Assessment & Plan Assessment & Plan (1) Osteomyelitis: Status: Acute Code(s): M86.9 - Osteomyelitis, unspecified Assessment and Plan: * no recommendations at this time from Addiction medicine perspective as interview was limited secondary to patient's frustration and request to end conversation and inform hospitalist of desire to discharge * provider updated Total time managing care of this patient today ____ minutes. PMFSH Past Medical History Medical History Nicotine dependence, cigarettes, uncomplicated Alcohol use disorder Smoking Hepatitis C IV drug user Family History Family History Maternal Uncle Cancer Paternal Uncle Cancer Maternal Uncle Cancer Maternal Uncle Cancer Father Arthritis Congenital polycystic lung Mother Diabetes Family history: reviewed and not pertinent Surgical History Surgical History History of facial surgery Social History Social History Household Members: Family Housing: House Do you presently have visiting nurse or other home services: No Patient Tobacco Use Status: Current everyday Tobacco user Tobacco use type: Cigarette Cigarette Packs Per Day: 1 Cigarettes Per Day: 20.0 Years Smoked: 30 service: No
[2025-10-10 15:51] VITALS: BP 134/75; PULSE 50; RESP 14; TEMP 35.9; O2SAT 98
[2025-10-10 19:13] VITALS: BP 121/84; PULSE 58; RESP 14; TEMP 36.1; O2SAT 98
[2025-10-11] MEDS: cefEPime HCl/D5W 2 GM/50 ML PIGGYBACK IV ×2 (03:34→16:37)
[2025-10-11 03:50] VITALS: BP 119/76; PULSE 51; RESP 16; TEMP 36.6; O2SAT 97
[2025-10-11 06:37] LABS: Creatinine Clr Calc Pharmacy 102.1; Estimated Glomerular Filt Rate > 60
[2025-10-11 07:35] VITALS: BP 161/74; PULSE 50; RESP 16; TEMP 36.3; O2SAT 97
[2025-10-11] MEDS: methADONE HCl 20 MG/2 ML ORAL.CONC 116 MG PO (07:58)
--- NOTE | 2025-10-11 09:48 | P.PNIM_ITS ---
Subjective Subjective Date of Service: 10/11/25 Interval History: Patient seen examined at bedside this morning, continues on IV antibiotics for osteomyelitis, patient does not have PCP as an outpatient to follow up for antibiotics. Review of Systems Review of Systems: Yes all other systems are reviewed and are negative Physical Exam 2 Exam: Exam: General: A&O x3, oriented to time place person and situation, comfortable, no pain Cardiac: S1, S2 auscultated with no S3/4, no MRG. Well perfused. Respiratory: Normal breath sounds auscultated throughout all lung zones, without wheezing, rales. Normal rate. GI/ : No abdominal pain on palpation, no masses or distentions. MSK: Normal ambulation without pain at bony prominences or musculature Lower extremities: Right hallux ulceration noted on the plantar aspect of the right foot; no discharge. Neurological: Normal neurological examination on overview, without obvious CN II-XII abnormalities. Vital Signs: Vital Signs: Last Vital Signs Temp 97.3 F 10/11/25 07:35 Pulse 50 10/11/25 07:35 Resp 16 10/11/25 07:35 BP 161/74 H 10/11/25 07:35 Pulse Ox 97 10/11/25 07:35 O2 Del Method Room Air 10/11/25 07:35 BMI result Body Mass Index 25.7 Objective Data Active Medications Acetaminophen (Acetaminophen 325 Mg Tablet) 650 mg PO Q6H PRN PRN Reason: Pain, Mild 1-3,fever,headache Last Admin: 10/10/25 20:49 Dose: 650 mg Documented By: SHERRIE Calcium Carbonate (Calcium Carbonate 750 Mg Tab.Chew) 750 mg PO Q4H PRN PRN Reason: Heartburn Enoxaparin Sodium (Enoxaparin Sodium 40 Mg/0.4 Ml Syringe) 40 mg SUBCUT Q24H [facility] Last Admin: 10/10/25 17:39 Dose: 40 mg Documented By: ESME Cefepime HCl (Maxipime) 2 gm in 50 mls @ 100 mls/hr IV Q12H [facility] Last Infusion: 10/11/25 04:06 Dose: Infused Documented By: SHERRIE Vancomycin HCl 1,000 mg/ (Sodium Chloride) 270 mls @ 270 mls/hr IV Q12H [facility] Last Infusion: 10/11/25 07:34 Dose: Infused Documented By: DAYNE Magnesium Hydroxide (Milk Of Magnesia 30 Ml Oral.Susp) 30 ml PO DAILY PRN PRN Reason: Constipation Last Admin: 10/09/25 19:31 Dose: 30 ml Documented By: DENISE Melatonin (Melatonin 3 Mg Tablet) 6 mg PO BEDTIME PRN PRN Reason: Insomnia Last Admin: 10/10/25 20:48 Dose: 6 mg Documented By: SHERRIE Methadone HCl (Methadone Hcl 20 Mg/2 Ml Oral.Conc) 116 mg PO DAILY@0800 [facility] Last Admin: 10/11/25 07:58 Dose: 116 mg Documented By: DAYNE Co-signed By: DESHAWN Nicotine (Nicotine 21 Mg Patch.Td24) 21 mg TRANSDERMA DAILY [facility] Last Admin: 10/11/25 08:04 Dose: Not Given Documented By: DAYNE Non-Admin Reason: Patient Refused Nicotine Polacrilex (Nicotine Polacrilex Lozenge 2 Mg Lozenge) 2 mg BUCCAL Q2H PRN PRN Reason: Nicotine Cravings Oxycodone HCl (Oxycodone Hcl Immed Release 5 Mg Tablet) 5 mg PO Q6H PRN PRN Reason: Pain, Severe (Pain Scale 7-10) Last Admin: 10/10/25 04:04 Dose: 5 mg Documented By: DENISE Pharmacy Consult (Consult Rx Vancomycin Dosing) 1 each MISCELLANE DAILY PRN PRN Reason: Consult order Sodium Chloride (0.9 % Sodium Chloride Flush 3 Ml Syringe) 3 ml IVFLUSH QSHIFT [facility] Last Admin: 10/11/25 08:02 Dose: Not Given Documented By: DAYNE Non-Admin Reason: Unable to Scan Barcode Labs 10/09/25 05:52 10/11/25 05:51 Labs: Laboratory Results - last 24 hr 10/11/25 05:51 Estim Creat Clear Calc 102.1 Estimated GFR > 60 Microbiology Microbiology Results: Microbiology 10/08/25 14:38 Blood Culture - Preliminary Blood - Venous No growth after 48 hours. 10/08/25 12:08 Blood Culture - Preliminary Blood - Venous No growth after 48 hours. Assessment and Plan (1) Alcohol use disorder: Status: Acute (2) Hepatitis C: Status: Acute (3) Hepatitis B core antibody positive: Status: Acute (4) Osteomyelitis: Status: Acute (5) Skin lesion: Status: Acute (6) Nicotine dependence, cigarettes, uncomplicated: Status: Acute Plan 55-year-old male with history of liver cirrhosis, HCV, HBV previous history of substance abuse on methadone who presents to the emergency department with chronic foot wound admitted with acute right hallux osteomyelitis. Right foot cellulitis Right hallux acute osteomyelitis Anaphylaxis to penicillin, continue with IV cefepime and vancomycin MRI with Distal phalanx of the 1st digit shows abnormal bone marrow signal; osteomyelitis. Infectious diseases consulted: Long-term antibiotics General surgery consulted, no role for surgical intervention at this time Blood cultures pending Tobacco dependence Smoking cessation advised NRT H/o substance use continue home dose of methadone dvt ppx - lovenox code status - full code Disposition: patient with no PCP to follow up on labs to continue IV abs, will try to coordinate for outpatient follow up Total time managing care of this patient today: 35 minutes. Quality Stroke Does the patient have a stroke diagnosis?: No VTE Prior VTE?: No VTE Risk Level:: Medical - moderate - high VTE Device Contraindication: N/A - Device Ordered VTE Drug Contraindication: N/A - Med Ordered
[2025-10-11 16:00] VITALS: BP 139/79; PULSE 48; TEMP 36.2; O2SAT 99
[2025-10-11] MEDS: 0.9 % Sodium Chloride Flush 3 ML SYRINGE IVFLUSH (16:36)
--- NOTE | 2025-10-11 17:42 | PM.EVENT ---
Event Note Date of Service: 10/11/25 Event Note: Patient has prior history of substance use disorder, with last documented use on 05/08/2023. Mentions that last time he used IV drugs was over 15 years ago. Patient follows with methadone clinic, mentioned that he has been getting his methadone supply once a week. Understands that if he were to use IV drugs he would be cut off from the program. Patient at this time we will benefit from IV antibiotics and PICC line placement. Has strong support system. Time Spent With Patient Time: Total time managing care of this patient today ____ minutes.
[2025-10-11 20:00] VITALS: BP 133/82; PULSE 48; RESP 19; TEMP 36.1; O2SAT 97
[2025-10-12 03:25] VITALS: BP 122/62; PULSE 48; RESP 18; TEMP 36.6; O2SAT 95
[2025-10-12] MEDS: cefEPime HCl/D5W 2 GM/50 ML PIGGYBACK IV (04:24)
[2025-10-12 06:26] LABS: Creatinine Clr Calc Pharmacy 103.2; Estimated Glomerular Filt Rate > 60
[2025-10-12 07:16] VITALS: BP 127/80; PULSE 50; RESP 16; TEMP 36.2; O2SAT 95
[2025-10-12] MEDS: methADONE HCl 20 MG/2 ML ORAL.CONC 116 MG PO (08:04)
[2025-10-12] MEDS: 0.9 % Sodium Chloride Flush 3 ML SYRINGE IVFLUSH ×2 (08:04→12:29)
[2025-10-12] MEDS: Nicotine 21 MG PATCH.TD24 TRANSDERMA (08:07)
--- NOTE | 2025-10-12 11:08 | PM.EVENT ---
Event Note Date of Service: 10/12/25 Event Note: Patient with PICC line placement today, plans on discharging on IV daptomycin for osteomyelitis for 6 weeks, to check weekly creatinine levels and CK. Per ID able to dc on Vanco OR Daptomycin Time Spent With Patient Time: Total time managing care of this patient today ____ minutes.
--- NOTE | 2025-10-12 11:40 | P.PICC_ITS ---
PICC Line Insertion NPICC INSERTION Diagnosis: OSTEOMYELITIS Indication: [facility] ANTIBX Pertinent Labs: REVIEWED Technique: Following informed consent including risks, benefits and alternatives and using sterile technique including cap and mask, sterile gown, glove and drape, the RIGHT arm was prepped and draped in the usual sterile fashion of full barrier technique with CHG. Following completion of Gallagher Protocol the skin and soft tissues were anesthetized with 1% Lidocaine plain. Using ultrasound guidance, RIGHT BRACHIAL vein access was obtained. Over an 0.018 wire through peel-away sheath, a 4FR SINGLE LUMEN PASV POWERPICC line was positioned. Catheter length is 41CM internal length, 0CM external length, for a total trimmed length of 41CM The procedure was performed in 7. Tip verification was performed by Daily Gibson with Sherlock 3CG. Tip located in SVC. Ultrasound was used to document vein patency and for needle entry. A formal ultrasound picture and cardiac rhythm strip was recorded. Vascular Decating Machine Operator has released the line for use and it is currently dressed with a StatLock, Tegaderm, and CHG disc. Verification has been performed for blood return and line patency. Arm Circumference: 34CM Equipment: [employer] POWERPICC SOLO CATHETER WITH SHERLOCK 3CG TIP Catheter Type: 4FR SINGLE LUMEN PASV POWERPICC Lot #: [id number]
[2025-10-12 13:15] VITALS: BP 130/70; PULSE 52; RESP 16; TEMP 36.4; O2SAT 96
--- NOTE | 2025-10-12 13:28 | PM.DS ---
DS: Providers Provider Date of admission: 10/08/25 16:23 Date of discharge: 10/12/25 Primary care physician: None Physician Consults: 10/08/25 21:11 Consult to Wound Care Routine Consulting Provider: [facility] Reason for consultation: wound to right great toe 10/09/25 07:29 Consult to General Surgery Routine Consulting Provider: [facility] General Surgeons Reason for consultation: osteomyelitis 1st digit R foot/ tear volar plate Consult to Infectious Diseases Routine Consulting Provider: [facility] Reason for consultation: osteomyelitis 1st digit R foot 10/10/25 10:41 Addiction Medicine Provider Routine Consulting Provider: Addiction Covering Reason for consultation: remote history of drug use Has provider been notified: No DS: Diagnosis Discharge Diagnosis (1) Alcohol use disorder: Status: Acute (2) Hepatitis C: Status: Acute (3) Hepatitis B core antibody positive: Status: Acute (4) Osteomyelitis: Status: Acute (5) Skin lesion: Status: Acute (6) Nicotine dependence, cigarettes, uncomplicated: Status: Acute DS: Summary Hospital Course Hospital Course: 55-year-old male with history of liver cirrhosis, HCV, HBV previous history of substance abuse on methadone who presents to the emergency department with chronic foot wound admitted with acute right hallux osteomyelitis. With plans on transitioning to daptomycin for IV antibiotic coverage with EOT on 11/20/2024. Right foot cellulitis Right hallux acute osteomyelitis MRI with Distal phalanx of the 1st digit shows abnormal bone marrow signal; osteomyelitis. Anaphylaxis to penicillin, initially on IV vancomycin, transitioned to daptomycin to complete a total of 6 weeks, and follow up as an outpatient. with cultures negative. Cefepime D/C. counselling given to patient that may require longer course of abs or even amputation despite IV abs, patient resonated understanding Continue to follow up CK and creatinine while on Dapto General surgery consulted, no role for surgical intervention at this time Tobacco dependence Smoking cessation advised NRT H/o substance use continue home dose of methadone Follow up with methadone clinic as outpatient Time Attestation Discharge Coordination Time (in mins): 35 minutes Quality: Safe Use of Opioids Does Pt have an Active Cancer Diagnosis on the Problem List?: No Quality: Stroke Does the patient have a stroke diagnosis?: No Physical Exam Exam: Exam: General: A&O x3, oriented to time place person and situation, comfortable, no pain Cardiac: S1, S2 auscultated with no S3/4, no MRG. Well perfused. Respiratory: Normal breath sounds auscultated throughout all lung zones, without wheezing, rales. Normal rate. GI/ : No abdominal pain on palpation, no masses or distentions. MSK: Normal ambulation without pain at bony prominences or musculature Lower extremities: Right hallux ulceration noted on the plantar aspect of the right foot; no discharge. Neurological: Normal neurological examination on overview, without obvious CN II-XII abnormalities. Vital Signs: Vital Signs: Last Vital Signs Temp 97.2 F 10/12/25 07:16 Pulse 50 10/12/25 07:16 Resp 16 10/12/25 07:16 BP 127/80 10/12/25 07:16 Pulse Ox 95 10/12/25 07:16 O2 Del Method Room Air 10/12/25 07:16 BMI result Body Mass Index 25.7 DS: Data Data Completed and Pending Labs on day of discharge: Laboratory Results - last 24 hr 10/11/25 10/12/25 16:02 05:51 Hold Purple Top SEE NOTE Creatinine 0.94 Estim Creat Clear Calc 103.2 Estimated GFR > 60 Random Vancomycin 16.0 Preliminary micro results at discharge 10/08/25 14:38 Blood Culture - Preliminary Blood - Venous No growth after 48 hours. 10/08/25 12:08 Blood Culture - Preliminary Blood - Venous No growth after 48 hours. Discharge Plan Discharge Anticipated Discharge Date/Time: 10/12/25 14:24 Patient Disposition: Home Health Service Discharge Diagnosis: Osteomyelitis Referrals: [facility] Wound Care [Outside] - 1 Week Physician,None [Primary Care Provider, Medical] - 1 Week Discharge Medications: New daptomycin 500 mg Recon Soln 726 mg IV Q24H 42 Days Qty: 1 0RF Continued methadone 5 mg/5 mL solution 116 mg PO DAILY Discharge Orders: Discharge Order (Routine); Ordered 10/12/25 Ordered By: Bradley Peralta Activity on Discharge: As tolerated Stand Alone Forms: Patient Portal Discharge page, Work/School Release Print Language: [place] Irish Activity Restrictions/Additional Instructions: Wound care recommendations: right great toe: cleanse with saline, apply thin layer of medihoney to wound beds, cover with durafiber ag ( silver alginate), wrap with rolled gauze, change every other day and PRN. Care Plan Goals: Continue IV antibiotics for osteomyelitis Wound care Health Concerns: Osteomyelitis Plan of Treatment: Daptomycin daily with EoT on 11/20/2024 Assessment: 55-year-old male with history of liver cirrhosis, HCV, HBV previous history of substance abuse on methadone who presents to the emergency department with chronic foot wound admitted with acute right hallux osteomyelitis. With plans on transitioning to daptomycin for IV antibiotic coverage with EOT on 11/20/2024. Patient Instructions: Osteomyelitis (DC)
== END 2025-10-12 14:00 | disposition home health service (06) | DRG 344 ==
LOC: HO.ED 14:40 → HO.EDOVER 16:28 → HO.S3 19:43
PROVIDERS: Internal Medicine; Physician Assistant Medical; Admitting Provider Physician Assistant Medical; Emergency Provider Emergency Medicine; Visit Provider Student in an Organized Health Care Education/Training Program
DX: M86.171 Other acute osteomyelitis, right ankle and foot (principal); L03.115 Cellulitis of right lower limb; K74.60 Unspecified cirrhosis of liver; F17.210 Nicotine dependence, cigarettes, uncomplicated; F11.20 Opioid dependence, uncomplicated; Z71.6 Tobacco abuse counseling; Z63.4 Disappearance and death of family member; Z86.19 Personal history of other infectious and parasitic diseases; Z88.0 Allergy status to penicillin; Z87.892 Personal history of anaphylaxis
CPT/HCPCS: 36415; 36573; 73660; 73720; 80048; 80053; 80202; 82565; 83605; 83735; 85025; 85027; 85652; 86140; 87040; 87389; 99285; A9585; C1751; J0692; J0878; J1650; J3373; J3374

== ENCOUNTER → 2025-10-08 11:30 | Outpatient (BNV) | payer MEDICAID, SELFPAY | PROVIDERS: Visit Provider Radiology Vascular & Interventional Radiology | DX: M17.11 Unilateral primary osteoarthritis, right knee (principal); R60.0 Localized edema | CPT/HCPCS: 73660; 73720 ==

== ENCOUNTER → 2025-10-08 16:23 | Outpatient (BNV) | payer MEDICAID, SELFPAY | PROVIDERS: Admitting Provider Physician Assistant Medical; Emergency Provider Emergency Medicine; Visit Provider Internal Medicine | DX: F19.90 Other psychoactive substance use, unspecified, uncomplicated (principal); F10.90 Alcohol use, unspecified, uncomplicated; B19.20 Unspecified viral hepatitis C without hepatic coma; R76.89 Other specified abnormal immunological findings in serum; M86.9 Osteomyelitis, unspecified | CPT/HCPCS: 99222 ==

== ENCOUNTER → 2025-10-08 16:23 | Outpatient (BNV) | payer OTHER, SELFPAY | PROVIDERS: Admitting Provider Physician Assistant Medical; Emergency Provider Emergency Medicine; Visit Provider Nurse Practitioner Psychiatric/Mental Health | DX: M86.9 Osteomyelitis, unspecified (principal) | CPT/HCPCS: 99221 ==

== ENCOUNTER → 2025-10-08 16:23 | Outpatient (BNV) | payer MEDICAID, SELFPAY | PROVIDERS: Admitting Provider Physician Assistant Medical; Emergency Provider Emergency Medicine; Visit Provider Physician Assistant Surgical | DX: M86.9 Osteomyelitis, unspecified (principal) | CPT/HCPCS: 99222 ==

== ENCOUNTER → 2025-10-08 16:23 | Outpatient (BNV) | payer MEDICAID, SELFPAY | PROVIDERS: Admitting Provider Physician Assistant Medical; Emergency Provider Emergency Medicine; Visit Provider Physician Assistant Medical | DX: M86.9 Osteomyelitis, unspecified (principal) | CPT/HCPCS: 99223 ==

== ENCOUNTER 2025-10-20 17:42 | Outpatient (REF) | payer OTHER, SELFPAY ==
[2025-10-20 17:46] LABS: MANUAL DIFF FLAG NO
[2025-10-20 17:51] LABS: Hematocrit 44.3 % (42.0-52.0); Hemoglobin 14.9 g/dl (14.0-18.0); Imm Gran Abs Auto 0.04 X10*3/uL (0.00-0.03); Imm Gran Pct Auto 0.4 % (0.0-0.4); Lymphocytes Absolute Auto 1.9 X10*3/uL (1.2-4.9); Mean Corpuscular HGB Conc 33.6 g/dl (31.0-36.0); Mean Corpuscular Hemoglobin 31.3 pg (27.0-33.0); Mean Corpuscular Volume 93.1 fL (80.0-98.0); NRBC Abs Auto 0.000 X10*3/uL (0.0-0.012); NRBC Pct Auto 0.0 /100WBC (0.0-0.2); Platelet Count 152 X10*3/uL (160-400); Red Blood Count 4.76 X10*6/uL (4.60-5.80); White Blood Count 9.7 X10*3/uL (4.8-10.8)
[2025-10-20 18:07] LABS: Estimated Glomerular Filt Rate > 60
== END 2025-10-20 17:43 | disposition home or self-care (01) ==
LOC: HO.LNP 17:42
PROVIDERS: Visit Provider Student in an Organized Health Care Education/Training Program
DX: L03.115 Cellulitis of right lower limb (principal); M86.9 Osteomyelitis, unspecified
CPT/HCPCS: 82550; 82565; 85025